=== PATIENT | male | born 1930 | race Caucasian/White ===

== ENCOUNTER 2017-01-05 17:42 | Inpatient (IN) | payer MEDICARE, OTHER ==
[2017-01-05] VITALS (7 sets, daily range): BP systolic 178–185; BP diastolic 102–103; PULSE 69–72; RESP 17–21; TEMP 94.5–98.9; O2SAT 99–100
[~2017-01-05] VITALS: Ht 177.8 cm; Wt 85.5 kg
[~2017-01-05 17:42] MED LIST: 1-ME1LIQ OR; BENA20TA PO; GLIM2TAB PO; LABE100T2 PO; LISI-363 PO; LORT5TAB PO; PROP1TAB PO; TIMO0.5S29 OP; TRAV0.00 EACH EYE
[2017-01-05] MEDS ORDERED: SODIUM CHLOR 0.9% 1000 ML INJ 1,000 ML IV SCH ×2 (17:52→20:45)
[2017-01-05] MEDS ORDERED: SODIUM CHLORIDE 0.9% FLUSH 10 ML FLUSH IVF PRN (18:00)
--- NOTE | 2017-01-05 18:10 | PD ---
HPI Chief Complaint: Altered Mental Status Time Seen by Provider: 17:52 Travel History International Travel<30 days: No Contact w/Intl Traveler<30days: No Traveled to known affect area: No History of Present Illness HPI The patient is a 86-year-old male who presents to the emergency department via EMS as a Guadalupe act. According to the police affidavit the patient's family called police because the patient has had an altered mental status and has been kicking and pushing at other family members. 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 Upon arrival the patient is a poor historian, is able to tell me his name, but is unable to tell me the current location, month, year, or who was the president of [facility]. The patient denies any chest pain, shortness breath, nausea, vomiting, or abdominal pain. EMS/police did bring a record of the patient's medications which include dementia medications, diabetes medications, and antihypertensives. PFSH Past Medical History Anxiety: Yes Cancer: Yes (SKIN) Cardiovascular Problems: No Dementia: Yes Diabetes: Yes Patient Takes Glucophage: Yes Hepatitis: No Hiatal Hernia: No Hypertension: Yes Thyroid Disease: No Past Surgical History Abdominal Surgery: No Cardiac Surgery: No Ear Surgery: No Endocrine Surgery: No Eye Surgery: Yes (CATARACTS REMOVED) Genitourinary Surgery: Yes (PROSTATE) Gynecologic Surgery: No Oral Surgery: No Thoracic Surgery: No Other Surgery: Yes Social History Alcohol Use: No Tobacco Use: No Substance Use: No Allergies-Medications (Allergen,Severity, Reaction): Coded Allergies: Penicillin (Verified Allergy, Mild, CAN'T REMEMBER, 12/05/07) Reported Meds & Prescriptions Reported Meds & Active Scripts Active Reported Glimepiride 2 Mg Tab 2 Mg PO DAILY Take with breakfast or first main meal Donepezil 10 Mg Tab 10 Mg PO DAILY Labetalol (Labetalol HCl) 100 Mg Tab 100 Mg PO BID Amlodipine (Amlodipine Besylate) 5 Mg Tab 5 Mg PO DAILY Lisinopril 20 Mg Tab 20 Mg PO BID Review of Systems ROS Limitations: Clinical Condition, Altered Mental Status Except as stated in HPI: all other systems reviewed are Neg HENT: No: Lightheadedness Cardiovascular: No: Chest Pain or Discomfort Respiratory: No: Shortness of Breath Gastrointestinal: No: Nausea, Vomiting, Abdominal Pain Neurologic: Positive: Change in Mentation (according to EMS) Physical Exam Narrative GENERAL: Awake, alert, pleasant 86-year-old male who appears his stated age and is in no acute respiratory distress. SKIN: Focused skin assessment warm/dry. HEAD: Atraumatic. Normocephalic. EYES: Pupils equal and round. Pupils are 3 mm bilateral and reactive. ENT: No nasal bleeding or discharge. Mucous membranes pink and moist. NECK: Trachea midline. No JVD. CARDIOVASCULAR: Regular rate and rhythm. No murmur appreciated. RESPIRATORY: No accessory muscle use. Clear to auscultation. Breath sounds equal bilaterally. GASTROINTESTINAL: Abdomen soft, non-tender, nondistended. No rebound tenderness. MUSCULOSKELETAL: No obvious deformities. No clubbing. No cyanosis. No edema. NEUROLOGICAL: Awake and alert. No obvious cranial nerve deficits. Motor grossly within normal limits. Normal speech. Nonfocal. Oriented to person, but not month, year, or document control clerk. PSYCHIATRIC: Appears disoriented. Data Data Last Documented VS Vital Signs Date Time Temp Pulse Resp B/P Pulse Ox O2 Delivery O2 Flow Rate FiO2 01/05/17 19:15 71 21 185/103 100 Nasal Cannula 1 01/05/17 18:07 94.5 Orders Electrocardiogram (01/05/17 17:52) Ammonia (01/05/17 17:52) Complete Blood Count With Diff (01/05/17 17:52) Comprehensive Metabolic Panel (01/05/17 17:52) Creatine Kinase (Cpk) (01/05/17 17:52) Prothrombin Time / Inr (Pt) (01/05/17:52) Act Partial Throm Time (Ptt) (01/05/17 17:52) Troponin I (01/05/17 17:52) Thyroid Stimulating Hormone (01/05/17 17:52) Urinalysis - C+S If Indicated (01/05/17 17:52) Chest, Single Ap (01/05/17:52) Ct Brain W/O Iv Contrast(Rout) (01/05/17 17:52) Blood Glucose (01/05/17 17:52) Ecg Monitoring (01/05/17 17:52) Iv Access Insert/Monitor (01/05/17 17:52) Oximetry (01/05/17 17:52) Sodium Chloride 0.9% Flush (Ns Flush) (01/05/17 18:00) Sodium Chlor 0.9% 1000 Ml Inj (Ns 1000 M (01/05/17 17:52) Alcohol (Ethanol) (01/05/17 17:52) Shunt Series (01/05/17 ) Blood Culture (01/05/17 18:03) Lactic Acid (01/05/17 18:03) Aspirin Chew (Aspirin Chew) (01/05/17 19:30) Nitroglycerin 2% Oint (Nitroglycerin 2% (01/05/17 19:30) Admit Order (Ed Use Only) (01/05/17 19:34) Labs Laboratory Tests Test 01/05/17 18:05 White Blood Count 9.0 TH/MM3 Red Blood Count 5.61 MIL/MM3 Hemoglobin 16.2 GM/DL Hematocrit 49.1 % Mean Corpuscular Volume 87.6 FL Mean Corpuscular Hemoglobin 28.8 PG Mean Corpuscular Hemoglobin 32.9 % Concent Red Cell Distribution Width 15.0 % Platelet Count 194 TH/MM3 Mean Platelet Volume 7.9 FL Neutrophils (%) (Auto) 68.9 % Lymphocytes (%) (Auto) 21.0 % Monocytes (%) (Auto) 7.5 % Eosinophils (%) (Auto) 2.0 % Basophils (%) (Auto) 0.6 % Neutrophils # (Auto) 6.2 TH/MM3 Lymphocytes # (Auto) 1.9 TH/MM3 Monocytes # (Auto) 0.7 TH/MM3 Eosinophils # (Auto) 0.2 TH/MM3 Basophils # (Auto) 0.1 TH/MM3 CBC Comment DIFF FINAL Differential Comment Prothrombin Time 11.4 SEC Prothromb Time International 1.0 RATIO Ratio Activated Partial 26.6 SEC Thromboplast Time Sodium Level 142 MEQ/L Potassium Level 3.6 MEQ/L Chloride Level 106 MEQ/L Carbon Dioxide Level 25.9 MEQ/L Anion Gap 10 MEQ/L Blood Urea Nitrogen 23 MG/DL Creatinine 1.26 MG/DL Estimat Glomerular Filtration 54 ML/MIN Rate Random Glucose 113 MG/DL Lactic Acid Level 1.3 mmol/L Calcium Level 9.5 MG/DL Total Bilirubin 1.0 MG/DL Aspartate Amino Transf 18 U/L (AST/SGOT) Alanine Aminotransferase 23 U/L (ALT/SGPT) Alkaline Phosphatase 70 U/L Ammonia LESS THAN 10 MCMOL/L Total Creatine Kinase 73 U/L Troponin I 0.16 NG/ML Total Protein 7.6 GM/DL Albumin 3.7 GM/DL Thyroid Stimulating Hormone 1.840 uIU/ML 3rd Gen Ethyl Alcohol Level LESS THAN 3 MG/DL MDM Medical Decision Making Medical Screen Exam Complete: Yes Emergency Medical Condition: Yes Medical Record Reviewed: Yes Interpretation(s) EKG reveals normal sinus rhythm with first-degree AV block. Low QRS voltage in the extremity leads. Prolonged QT interval with QTC of 466 ms. Last Impressions Head CT 01/05/17 0122 Signed Impressions: Service Date/Time: Thursday, January 05, 2017 18:22 - CONCLUSION: 1. Right ventricular shunt catheter remains in place and is unchanged in position with the tip at the level of the foramen of Monro. 2. The ventricular system is stable and remains diffusely prominent. There is no acute hydrocephalus. 3. No acute hemorrhage or mass effect. 4. Stable area of encephalomalacia involving the right occipital lobe. Kelechi Salmon MD Laboratory Tests Test 01/05/17 18:05 White Blood Count 9.0 TH/MM3 Red Blood Count 5.61 MIL/MM3 Hemoglobin 16.2 GM/DL Hematocrit 49.1 % Mean Corpuscular Volume 87.6 FL Mean Corpuscular Hemoglobin 28.8 PG Mean Corpuscular Hemoglobin 32.9 % Concent Red Cell Distribution Width 15.0 % Platelet Count 194 TH/MM3 Mean Platelet Volume 7.9 FL Neutrophils (%) (Auto) 68.9 % Lymphocytes (%) (Auto) 21.0 % Monocytes (%) (Auto) 7.5 % Eosinophils (%) (Auto) 2.0 % Basophils (%) (Auto) 0.6 % Neutrophils # (Auto) 6.2 TH/MM3 Lymphocytes # (Auto) 1.9 TH/MM3 Monocytes # (Auto) 0.7 TH/MM3 Eosinophils # (Auto) 0.2 TH/MM3 Basophils # (Auto) 0.1 TH/MM3 CBC Comment DIFF FINAL Differential Comment Prothrombin Time 11.4 SEC Prothromb Time International 1.0 RATIO Ratio Activated Partial 26.6 SEC Thromboplast Time Lactic Acid Level 1.3 mmol/L Ammonia LESS THAN 10 MCMOL/L Differential Diagnosis Differential diagnosis includes delirium, sepsis, UTI, pneumonia, normal pressure hydrocephalus, meningitis, encephalitis, medication side effect, dementia, Guadalupe act. Narrative Course IV was established, labs are drawn and sent, and the patient was placed on cardiac telemetry monitoring and continuous pulse oximetry monitoring. The patient was noted to be hypothermic with a temperature 94.5. Therefore, the patient had warm blankets applied. Lactic acid blood culture were sent to lab. CT of the brain was ordered as well as shunt series was ordered. The patient was signed out to the oncoming physician at 7 PM with laboratory evaluation and CT results pending. Condition: Stable Jeronimo Bird MD Jan 05, 2017 18:10
[2017-01-05 18:27] LABS: AUTOMATED NEUTROPHIL # 6.2 TH/MM3 (1.8-7.7); BASOPHIL # 0.1 TH/MM3 (0-0.2); BASOPHIL % 0.6 % (0.0-2.0); EOSINOPHIL # 0.2 TH/MM3 (0-0.4); HEMATOCRIT 49.1 % (39.0-51.0); HEMO FLAGS DIFF FINAL; LYMPHOCYTE # 1.9 TH/MM3 (1.0-4.8); MEAN CELL VOLUME 87.6 FL (80.0-100.0); MEAN CORPUSCULAR HEMOGLOBIN 28.8 PG (27.0-34.0); MEAN CORPUSCULAR HGB CONC 32.9 % (32.0-36.0); MONO % 7.5 % (0.0-8.0); NEUT % 68.9 % (16.0-70.0); PLATELET COUNT 194 TH/MM3 (150-450); RED BLOOD COUNT 5.61 MIL/MM3 (4.50-5.90)
[2017-01-05 18:40] LABS: APTT (PATIENT) 26.6 SEC (24.3-30.1); PROTHROMBIN TIME - PATIENT 11.4 SEC (9.8-11.6)
[2017-01-05 18:44] LABS: ANION GAP 10 MEQ/L (5-15)
--- NOTE | 2017-01-05 18:45 | RADRPT ---
EXAM DATE/TIME: 01/05/2017 18:22 [facility] COMPARISON: CT BRAIN W/O CONTRAST, February 07, 2011, 10:46. INDICATIONS : Altered mental status. RADIATION DOSE: 43.38 CTDIvol (mGy) MEDICAL HISTORY : Dementia. SURGICAL HISTORY : Shunt. ENCOUNTER: Initial ACUITY: 1 day PAIN SCALE: Non-responsive LOCATION: Bilateral cranial TECHNIQUE: Multiple contiguous axial images were obtained of the head. Using automated exposure control and adj ustment of the mA and/or kV according to patient size, radiation dose was kept as low as reasonably a chievable to obtain optimal diagnostic quality images. FINDINGS: Patient is tilted in the scanning gantry and there is mild motion artifact degrading images. CEREBRUM: The ventricular shunt catheter remains in place via a right frontal approach. The tip of the catheter is stable in position and is located near the foramen of Monro. The ventricular system remains diffu sely prominent but is unchanged. No evidence of midline shift, mass lesion, hemorrhage or acute infar ction. No extra-axial fluid collections are seen. Diffuse moderate atrophic changes present. There a re periventricular white matter lucency is again noted. There is focal air encephalomalacia again not ed involving the right occipital lobe. POSTERIOR FOSSA: The cerebellum and brainstem are intact. The 4th ventricle is midline. The cerebellopontine angle i s unremarkable. EXTRACRANIAL: The visualized portion of the orbits is intact. SKULL: The calvaria is intact. No evidence of skull fracture. CONCLUSION: 1. Right ventricular shunt catheter remains in place and is unchanged in position with the tip at the level of the foramen of Monro. 2. The ventricular system is stable and remains diffusely prominent. There is no acute hydrocephalus. 3. No acute hemorrhage or mass effect. 4. Stable area of encephalomalacia involving the right occipital lobe. Kelechi Salmon MD on January 05, 2017 at 18:41 Board Certified Radiologist. This report was verified electronically.
[2017-01-05 18:55] LABS: ALKALINE PHOSPHATASE 70 U/L (45-117); ALT (GPT) 23 U/L (12-78); AST (GOT) 18 U/L (15-37); BICARBONATE 25.9 MEQ/L (21.0-32.0); BLOOD UREA NITROGEN 23 MG/DL (7-18); CHLORIDE 106 MEQ/L (98-107); GLOMERULAR FILTRATION RATE 54 ML/MIN (>89); POTASSIUM 3.6 MEQ/L (3.5-5.1); SODIUM (NA) 142 MEQ/L (136-145)
--- NOTE | 2017-01-05 18:57 | RADRPT ---
EXAM DATE/TIME: 01/05/2017 18:31 [facility] COMPARISON: No previous studies available for comparison. INDICATIONS : Cough. Ventriculoperitoneal shunt catheter. MEDICAL HISTORY : None. SURGICAL HISTORY : Shunt. ENCOUNTER: Initial ACUITY: 1 day PAIN SCORE: Non-responsive. LOCATION: Bilateral chest FINDINGS: A single view of the chest demonstrates the lungs to be symmetrically aerated without evidence of mas s or infiltrate. There is mild blunting of the right lateral costophrenic angle. The cardiomediastina l contours are unremarkable. Osseous structures are intact. A ventricular peritoneal shunt catheter is projected over the right side of the chest. There are multiple overlying electrocardiogram leads. CONCLUSION: 1. Mild blunting of the right lateral costophrenic angle which could indicate scarring versus a small effusion. There are no identifiable infiltrates. 2. Shunt catheter tubing projected over the right side of the thorax. Kelechi Salmon MD on January 05, 2017 at 18:54 Board Certified Radiologist. This report was verified electronically.
[2017-01-05 19:03] LABS: CREATINE KINASE 73 U/L (39-308)
--- NOTE | 2017-01-05 19:10 | PD ---
Data Data Last Documented VS Vital Signs Date Time Temp Pulse Resp B/P Pulse Ox O2 Delivery O2 Flow Rate FiO2 01/05/17 19:15 71 21 185/103 100 Nasal Cannula 1 01/05/17 18:07 94.5 Orders Electrocardiogram (01/05/17 17:52) Ammonia (01/05/17 17:52) Complete Blood Count With Diff (01/05/17 17:52) Comprehensive Metabolic Panel (01/05/17:52) Creatine Kinase (Cpk) (01/05/17:52) Prothrombin Time / Inr (Pt) (01/05/17:52) Act Partial Throm Time (Ptt) (01/05/17:52) Troponin I (01/05/17:52) Thyroid Stimulating Hormone (01/05/17:52) Urinalysis - C+S If Indicated (01/05/17:52) Chest, Single Ap (01/05/17:52) Ct Brain W/O Iv Contrast(Rout) (01/05/17:52) Blood Glucose (01/05/17:52) Ecg Monitoring (01/05/17 17:52) Iv Access Insert/Monitor (01/05/17 17:52) Oximetry (01/05/17:52) Sodium Chloride 0.9% Flush (Ns Flush) (01/05/17 18:00) Sodium Chlor 0.9% 1000 Ml Inj (Ns 1000 M (01/05/17 17:52) Alcohol (Ethanol) (01/05/17 17:52) Shunt Series (01/05/17 ) Blood Culture (01/05/17 18:03) Lactic Acid (01/05/17 18:03) Aspirin Chew (Aspirin Chew) (01/05/17 19:30) Nitroglycerin 2% Oint (Nitroglycerin 2% (01/05/17 19:30) Admit Order (Ed Use Only) (01/05/17 19:34) Labs Laboratory Tests Test 01/05/17 18:05 White Blood Count 9.0 TH/MM3 Red Blood Count 5.61 MIL/MM3 Hemoglobin 16.2 GM/DL Hematocrit 49.1 % Mean Corpuscular Volume 87.6 FL Mean Corpuscular Hemoglobin 28.8 PG Mean Corpuscular Hemoglobin 32.9 % Concent Red Cell Distribution Width 15.0 % Platelet Count 194 TH/MM3 Mean Platelet Volume 7.9 FL Neutrophils (%) (Auto) 68.9 % Lymphocytes (%) (Auto) 21.0 % Monocytes (%) (Auto) 7.5 % Eosinophils (%) (Auto) 2.0 % Basophils (%) (Auto) 0.6 % Neutrophils # (Auto) 6.2 TH/MM3 Lymphocytes # (Auto) 1.9 TH/MM3 Monocytes # (Auto) 0.7 TH/MM3 Eosinophils # (Auto) 0.2 TH/MM3 Basophils # (Auto) 0.1 TH/MM3 CBC Comment DIFF FINAL Differential Comment Prothrombin Time 11.4 SEC Prothromb Time International 1.0 RATIO Ratio Activated Partial 26.6 SEC Thromboplast Time Sodium Level 142 MEQ/L Potassium Level 3.6 MEQ/L Chloride Level 106 MEQ/L Carbon Dioxide Level 25.9 MEQ/L Anion Gap 10 MEQ/L Blood Urea Nitrogen 23 MG/DL Creatinine 1.26 MG/DL Estimat Glomerular Filtration 54 ML/MIN Rate Random Glucose 113 MG/DL Lactic Acid Level 1.3 mmol/L Calcium Level 9.5 MG/DL Total Bilirubin 1.0 MG/DL Aspartate Amino Transf 18 U/L (AST/SGOT) Alanine Aminotransferase 23 U/L (ALT/SGPT) Alkaline Phosphatase 70 U/L Ammonia LESS THAN 10 MCMOL/L Total Creatine Kinase 73 U/L Troponin I 0.16 NG/ML Total Protein 7.6 GM/DL Albumin 3.7 GM/DL Thyroid Stimulating Hormone 1.840 uIU/ML 3rd Gen Ethyl Alcohol Level LESS THAN 3 MG/DL [facility] Medical Record Reviewed: Yes Supervised Visit with GLEN: No Interpretation(s) Last Impressions Head CT 01/05/171751 Signed Impressions: Service Date/Time: Thursday, January 05, 2017 18:22 - CONCLUSION: 1. Right ventricular shunt catheter remains in place and is unchanged in position with the tip at the level of the foramen of Monro. 2. The ventricular system is stable and remains diffusely prominent. There is no acute hydrocephalus. 3. No acute hemorrhage or mass effect. 4. Stable area of encephalomalacia involving the right occipital lobe. Kelechi Salmon MD Chest X-Ray 01/05/171751 Signed Impressions: Service Date/Time: Thursday, January 05, 2017 18:31 - CONCLUSION: 1. Mild blunting of the right lateral costophrenic angle which could indicate scarring versus a small effusion. There are no identifiable infiltrates. 2. Shunt catheter tubing projected over the right side of the thorax. Kelechi Salmon MD Shunt Study (Imaging) 01/05/17 0000 Signed Impressions: Service Date/Time: Thursday, January 05, 2017 18:33 - CONCLUSION: The shunt tubing appears intact. Kelechi Salmon MD Narrative Course During the course of the patients emergency department visit, the patients history, examination, and differential diagnosis were reviewed with the patient. The patient had IV access obtained and blood work sent for analysis. The patient was placed on a vehicle monitor technician with oximetry and blood pressure monitoring. The patient's case was checked out to me by Dr. Bird who requested that I review the patient's laboratory studies and imaging studies that were pending at the conclusion of his shift. The patient was brought in as a Guadalupe act due to acute agitation. The patient does have a known history of dementia and a REMARKETING REP shunt in place. The patient was provided [-]. The patients laboratory studies were reviewed and remarkable for CBC within normal limits, CMP is remarkable for a BUN of 23, glucose 113, CPK 73, troponin I 0.16, TSH 1.84, ammonia level is less than 10, lactic acid is 1.3, PT PTT within normal limits. Alcohol level is less than 3 Radiology studies were reviewed and remarkable for a CT scan of the brain that shows a right ventricular shunt catheter remains in place and is unchanged in position with the tip at the level of the foramen of Wong the ventricular system is stable and remains diffusely prominent. There is no acute hydrocephalus. No acute hemorrhage or mass effect. Stable area of encephalomalacia involving the right occipital lobe. Chest x-ray shows a mild blunting of the right lateral costophrenic angle which could indicate scarring versus a small effusion. There is no identifiable infiltrate, shunt catheter tubing projected over the right side of the thorax. The patient will be admitted to the hospital for continued evaluation. The patient has a slightly elevated troponin I. The patient denies having any chest pain. The patient has a systolic blood pressure of 183. The patient will be given 2 baby aspirin, an inch of paste will be applied to the chest wall. The patients results were discussed with the patient, including the plan of care. I explained that further testing and/ or monitoring is indicated based on the patients history, examination, and/ or laboratory findings. Therefore, I recommended admission for additional evaluation. The patient expressed understanding and was agreeable with this plan. The patient was admitted to the hospital in stable condition and sent to a bed under the care of [facility]. Physician Communication Physician Communication The patient's case was discussed with Dr. Solomon who did agree to admit the patient for further evaluation and treatment at this time. Diagnosis Primary Impression: Altered mental status Qualified Code: R41.0 - Delirium Additional Impressions: Delirium Elevated troponin I level Urinary retention Admitting Information Admitting Physician Requests: Admit Condition: Stable Sparkle Schilling MD Jan 05, 2017 19:10
--- NOTE | 2017-01-05 19:23 | RADRPT ---
EXAM DATE/TIME: 01/05/2017 18:33 [facility] COMPARISON: No previous studies available for comparison. INDICATIONS : Evaluate shunt after injury. MEDICAL HISTORY : None. SURGICAL HISTORY : None. ENCOUNTER: Initial ACUITY: 1 day PAIN SCORE: Non-responsive. LOCATION: Shunt. FINDINGS: Radiograph of the skull, neck, chest and abdomen performed to evaluate shunt patency. The shunt cath eter is seen entering the right frontal region with its tip in the region of the foramen of Monro. The catheter is continuous in its course terminating in the right mid abdomen. No catheter disruption is identified. The visualized heart, lungs and abdominal structures are intact. CONCLUSION: The shunt tubing appears intact. Kelechi Salmon MD on January 05, 2017 at 19:19 Board Certified Radiologist. This report was verified electronically.
[2017-01-05] MEDS ORDERED: NITROGLYCERIN 2% OINT 1 GM PACKET TOPICAL ONE (19:30)
[2017-01-05] MEDS ORDERED: ASPIRIN 81 MG CHEW TAB CHEW ONE (19:30)
--- NOTE | 2017-01-05 19:36 | PD ---
Physical Exam Date Seen by Provider: Jan 05, 2017 Time Seen by Provider: 19:35 Narrative I was called in to See the patient by nursing staff as they were having trouble placing a urinary catheter. Patient is retaining urine and having difficulty. Patient has large prostate and nursing staff was unable to advance the catheter and asked me if I could try. Patient is already planned to be admitted. Data Data Last Documented VS Vital Signs Date Time Temp Pulse Resp B/P Pulse Ox O2 Delivery O2 Flow Rate FiO2 01/05/17 19:15 71 21 185/103 100 Nasal Cannula 1 01/05/17 18:07 94.5 Orders Electrocardiogram (01/05/17 17:52) Ammonia (01/05/17:52) Complete Blood Count With Diff (01/05/17:52) Comprehensive Metabolic Panel (01/05/17:52) Creatine Kinase (Cpk) (01/05/17:52) Prothrombin Time / Inr (Pt) (01/05/17:52) Act Partial Throm Time (Ptt) (01/05/17:52) Troponin I (01/05/17:52) Thyroid Stimulating Hormone (01/05/17 17:52) Urinalysis - C+S If Indicated (01/05/17 17:52) Chest, Single Ap (01/05/17:52) Ct Brain W/O Iv Contrast(Rout) (01/05/17 17:52) Blood Glucose (01/05/17 17:52) Ecg Monitoring (01/05/17 17:52) Iv Access Insert/Monitor (01/05/17:52) Oximetry (01/05/17:52) Sodium Chloride 0.9% Flush (Ns Flush) (01/05/17 18:00) Sodium Chlor 0.9% 1000 Ml Inj (Ns 1000 M (01/05/17 17:52) Alcohol (Ethanol) (01/05/17 17:52) Shunt Series (01/05/17 ) Blood Culture (01/05/17 18:03) Lactic Acid (01/05/17 18:03) Aspirin Chew (Aspirin Chew) (01/05/17 19:30) Nitroglycerin 2% Oint (Nitroglycerin 2% (01/05/17 19:30) Admit Order (Ed Use Only) (01/05/17 19:34) Labs Laboratory Tests Test 01/05/17 18:05 White Blood Count 9.0 TH/MM3 Red Blood Count 5.61 MIL/MM3 Hemoglobin 16.2 GM/DL Hematocrit 49.1 % Mean Corpuscular Volume 87.6 FL Mean Corpuscular Hemoglobin 28.8 PG Mean Corpuscular Hemoglobin 32.9 % Concent Red Cell Distribution Width 15.0 % Platelet Count 194 TH/MM3 Mean Platelet Volume 7.9 FL Neutrophils (%) (Auto) 68.9 % Lymphocytes (%) (Auto) 21.0 % Monocytes (%) (Auto) 7.5 % Eosinophils (%) (Auto) 2.0 % Basophils (%) (Auto) 0.6 % Neutrophils # (Auto) 6.2 TH/MM3 Lymphocytes # (Auto) 1.9 TH/MM3 Monocytes # (Auto) 0.7 TH/MM3 Eosinophils # (Auto) 0.2 TH/MM3 Basophils # (Auto) 0.1 TH/MM3 CBC Comment DIFF FINAL Differential Comment Prothrombin Time 11.4 SEC Prothromb Time International 1.0 RATIO Ratio Activated Partial 26.6 SEC Thromboplast Time Sodium Level 142 MEQ/L Potassium Level 3.6 MEQ/L Chloride Level 106 MEQ/L Carbon Dioxide Level 25.9 MEQ/L Anion Gap 10 MEQ/L Blood Urea Nitrogen 23 MG/DL Creatinine 1.26 MG/DL Estimat Glomerular Filtration 54 ML/MIN Rate Random Glucose 113 MG/DL Lactic Acid Level 1.3 mmol/L Calcium Level 9.5 MG/DL Total Bilirubin 1.0 MG/DL Aspartate Amino Transf 18 U/L (AST/SGOT) Alanine Aminotransferase 23 U/L (ALT/SGPT) Alkaline Phosphatase 70 U/L Ammonia LESS THAN 10 MCMOL/L Total Creatine Kinase 73 U/L Troponin I 0.16 NG/ML Total Protein 7.6 GM/DL Albumin 3.7 GM/DL Thyroid Stimulating Hormone 1.840 uIU/ML 3rd Gen Ethyl Alcohol Level LESS THAN 3 MG/DL [facility] Medical Record Reviewed: Yes Supervised Visit with GLEN: Yes Differential Diagnosis Urinary retention. Enlarged prostate. Prostatitis. Narrative Course Daily catheter was attempted to be placed by myself without success. Call was placed to Dr. Merritt the urologist on-call the patient was discussed. Patient had 370 mL stone in his bladder. Dr. Merritt recommended that we do not attempt to try further Flores attempts at this time and that he would put him in the morning. Consult was placed to Dr. Merritt for the patient to see them in the morning. Call was placed to Dr. Solomon in the patient's urinary issue was discussed. Diagnosis Primary Impression: Altered mental status Additional Impressions: Elevated troponin I level Delirium Condition: Stable William Santana Jan 05, 2017 19:36
[2017-01-05] MEDS ORDERED: DEXTROSE 50% IN WATER 50 ML VIAL(D50) IV PUSH PRN (20:00)
[2017-01-05] MEDS ORDERED: GLUCAGON 1 MG/ML VIAL OTHER PRN (20:00)
[2017-01-05] MEDS ORDERED: ONDANSETRON HCL 4 MG/2 ML VIAL IVP PRN (20:30)
[2017-01-05] MEDS ORDERED: NALOXONE HCL 0.4 MG/ML AMP IV PRN (20:30)
[2017-01-05] MEDS ORDERED: BISACODYL 10 MG SUPP RECTAL PRN (20:30)
[2017-01-05] MEDS ORDERED: ACETAMINOPHEN 325 MG TAB PO PRN (20:30)
[2017-01-05] MEDS ORDERED: SODIUM CHLORIDE 0.9% FLUSH 10 ML FLUSH IV FLUSH PRN (20:30)
[2017-01-05] MEDS: INSULIN ASPART SUPPLEMENTAL SCALE SQ SCH (20:41)
[2017-01-05 20:47] LABS: BLOOD, URINE MOD (NEG); GLUCOSE,URINE NEG (NEG); KETONE, URINE 10 mg/dL (NEG); NITRITE,URINE NEG (NEG); PH, URINE 7.5 (5.0-8.5); URINE COLOR YELLOW (YELLW/STRAW)
[2017-01-05 20:48] LABS: COMMENT (UR) CATH-CULT NOT IND; CULTURE IF INDICATED CATH CULTURE NOT IND
[2017-01-05] MEDS ORDERED: INSULIN ASPART SUPPLEMENTAL SCALE SQ SCH (21:00)
[2017-01-05] MEDS: DOCUSATE SODIUM 100 MG CAP PO SCH (21:00)
[2017-01-05] MEDS: HEPARIN SODIUM - SQ 10,000 UNITS/ML VIAL SQ SCH (22:27)
[2017-01-05] MEDS: SODIUM CHLORIDE 0.9% FLUSH 10 ML FLUSH IV FLUSH SCH (22:27)
--- NOTE | 2017-01-05 22:29 | HHI.HP ---
HPI Service [facility] Primary Care Physician Unknown Admission Diagnosis AMS, intermediate troponin Diagnoses: Chief Complaint: Brought in under Guadalupe act after becoming aggressive with the family. 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 Patient was brought into the emergency department emergency department via EMS as a Guadalupe act. According to the police affidavit the patient's family called police because the patient has had become aggressive and had kicked and pushed his family members. Patient is alert and oriented to person only. Patient is a poor historian answers yes to all questions including chest pain, dysuria abd pain, SOB. unable to elaborate or give further details. Unable to follow commands. Review of ER documentation , "The patient denies any chest pain, shortness breath, nausea, vomiting, or abdominal pain." History of reliable. Patient does not appear to be in any acute distress at this time EKG reviewed and reveals ectopic atrial rhythm rate of [address] changes identified Troponin elevated at 0.16 Review of Systems ROS Limitations: Poor Historian (patient confused but oriented to person only unable to find any meaningful information) Past Family Social History Past Medical History Dementia, normal pressure hydrocephalus status post FISHER EEL shunt, diabetes mellitus , hypertension Past Surgical History Cataract surgery and prostate surgery Reported Medications Glimepiride 2 Mg Tab 2 Mg PO DAILY Take with breakfast or first main meal Donepezil 10 Mg Tab 10 Mg PO DAILY Labetalol (Labetalol HCl) 100 Mg Tab 100 Mg PO BID Amlodipine (Amlodipine Besylate) 5 Mg Tab 5 Mg PO DAILY Lisinopril 20 Mg Tab 20 Mg PO BID Allergies: Coded Allergies: Penicillin (Verified Allergy, Mild, CAN'T REMEMBER, 12/05/07) Active Ordered Medications Current Medications Medications (Trade) Dose Ordered Sig/Yesenia Route Start Time Stop Time Status Last Admin (D50w (Vial) Inj) 25 ml UNSCH PRN IV PUSH 01/05/17 20:00 (Glucagon Inj) 1 mg UNSCH PRN OTHER 01/05/17 20:00 (NS Flush) 2 ml UNSCH PRN IV FLUSH 01/05/17 20:30 (NS Flush) 2 ml BID IV FLUSH 01/05/17 21:00 01/05/17 22:27 (Tylenol) 650 mg Q4H PRN PO 01/05/17 20:30 (Zofran Inj) 4 mg Q6H PRN IVP 01/05/17 20:30 (Dulcolax Supp) 10 mg DAILY PRN RECTAL 01/05/17 20:30 (Colace) 100 mg Q12H PO 01/05/17 21:00 (Heparin Inj) 5,000 units Q12H SQ 01/05/17 21:00 01/05/17 22:27 (Narcan Inj) 0.4 mg UNSCH PRN IV 01/05/17 20:30 (Nitroglycerin 2% Oint) 1 inch Q6HR TOPICAL 01/06/17 00:00 Family History Unable to obtain due to patient's mental status. Previous records reviewed Social History Lives at home with family. no report of EtOH use or tobacco use Physical Exam Vital Signs Vital Signs Date Time Temp Pulse Resp B/P Pulse Ox O2 Delivery O2 Flow Rate FiO2 01/05/17 22:09 99 Nasal Cannula 1.00 01/05/17 22:06 72 21 178/102 100 Nasal Cannula 2 01/05/17 19:51 98.9 01/05/17 19:15 71 21 185/103 100 Nasal Cannula 1 01/05/17 18:07 94.5 01/05/17 18:04 183/102 99 Room Air 01/05/17 17:55 99 Room Air 01/05/17 17:52 69 17 180/103 Physical Exam GENERAL: This is an elderly confused 86-year-old male patient tolerated to person only SKIN: Abrasion right knee lateral aspect HEAD: Atraumatic. FISHER EEL shunt evident through skin EYES: Extraocular motions intact. No scleral icterus. No injection or drainage. CARDIOVASCULAR: Regular rate and rhythm without murmurs, gallops, or rubs. RESPIRATORY: Clear to auscultation. Breath sounds equal bilaterally. No wheezes , rales, or rhonchi. GASTROINTESTINAL: Abdomen soft, non-tender, nondistended. No guarding. MUSCULOSKELETAL: Extremities without clubbing, cyanosis, or edema. No joint tenderness, effusion, or edema noted. No calf tenderness. Negative Homans sign bilaterally. NEUROLOGICAL: Awake and alert. Patient is alert and oriented to person only unable to provide meaningful information. Unable to follow commands, does move all 4 extremities spontaneously Laboratory Laboratory Tests Test 01/05/17 01/05/17 18:05 20:35 White Blood Count 9.0 Red Blood Count 5.61 Hemoglobin 16.2 Hematocrit 49.1 Mean Corpuscular Volume 87.6 Mean Corpuscular Hemoglobin 28.8 Mean Corpuscular Hemoglobin 32.9 Concent Red Cell Distribution Width 15.0 Platelet Count 194 Mean Platelet Volume 7.9 Neutrophils (%) (Auto) 68.9 Lymphocytes (%) (Auto) 21.0 Monocytes (%) (Auto) 7.5 Eosinophils (%) (Auto) 2.0 Basophils (%) (Auto) 0.6 Neutrophils # (Auto) 6.2 Lymphocytes # (Auto) 1.9 Monocytes # (Auto) 0.7 Eosinophils # (Auto) 0.2 Basophils # (Auto) 0.1 CBC Comment DIFF FINAL Differential Comment Prothrombin Time 11.4 Prothromb Time International 1.0 Ratio Activated Partial 26.6 Thromboplast Time Sodium Level 142 Potassium Level 3.6 Chloride Level 106 Carbon Dioxide Level 25.9 Anion Gap 10 Blood Urea Nitrogen 23 Creatinine 1.26 Estimat Glomerular Filtration 54 Rate Random Glucose 113 Lactic Acid Level 1.3 Calcium Level 9.5 Total Bilirubin 1.0 Aspartate Amino Transf 18 (AST/SGOT) Alanine Aminotransferase 23 (ALT/SGPT) Alkaline Phosphatase 70 Ammonia LESS THAN 10 Total Creatine Kinase 73 Troponin I 0.16 Total Protein 7.6 Albumin 3.7 Thyroid Stimulating Hormone 1.840 3rd Gen Ethyl Alcohol Level LESS THAN 3 Urine Color YELLOW Urine Turbidity CLEAR Urine pH 7.5 Urine Specific [place] 1.011 Urine Protein 30 Urine Glucose (UA) NEG Urine Ketones 10 Urine Occult Blood MOD Urine Nitrite NEG Urine Bilirubin NEG Urine Urobilinogen LESS THAN 2.0 Urine Leukocyte Esterase NEG Urine RBC Urine WBC 5 Microscopic Urinalysis Comment CATH-CULT NOT IND Date/Time Procedure Status Source Growth 01/05/17 18:05 Aerobic Blood Culture Received Blood Peripheral Pending 01/05/17 18:05 Anaerobic Blood Culture Received Blood Peripheral Pending Result Diagram: 01/05/17 18001/05/171804 Imaging Last Impressions Head CT 01/05/171751 Signed Impressions: Service Date/Time: Thursday, January 05, 2017 18:22 - CONCLUSION: 1. Right ventricular shunt catheter remains in place and is unchanged in position with the tip at the level of the foramen of Monro. 2. The ventricular system is stable and remains diffusely prominent. There is no acute hydrocephalus. 3. No acute hemorrhage or mass effect. 4. Stable area of encephalomalacia involving the right occipital lobe. Kelechi Salmon MD Chest X-Ray 01/05/171751 Signed Impressions: Service Date/Time: Thursday, January 05, 2017 18:31 - CONCLUSION: 1. Mild blunting of the right lateral costophrenic angle which could indicate scarring versus a small effusion. There are no identifiable infiltrates. 2. Shunt catheter tubing projected over the right side of the thorax. Kelechi Salmon MD Shunt Study (Imaging) 01/05/17 0000 Signed Impressions: Service Date/Time: Thursday, January 05, 2017 18:33 - CONCLUSION: The shunt tubing appears intact. Kelechi Salmon MD Assessment and Plan Assessment and Plan This is an elderly 86 year old male patient with a past medical history which includes: Dementia, normal pressure hydrocephalus status post FISHER EEL shunt, diabetes mellitus, hypertension. Patient was brought into the emergency department emergency department via EMS as a Guadalupe act after becoming aggressive with family members found to have elevated troponin 0.16. Altered mental status question worsening dementia Dementia Radiology studies were reviewed by myself and Dr Solomon CT scan of the brain showed a right ventricular shunt catheter remains in place and is unchanged in position with the tip at the level of the foramen of Wong the ventricular system is stable and remains diffusely prominent. There is no acute hydrocephalus. No acute hemorrhage or mass effect. Stable area of encephalomalacia involving the right occipital lobe. Continue Donepezil Elevated troponin 0.16 Given 2 baby aspirin, an inch of paste will be applied to the chest wall in ER Continue Nitropaste Serial troponin Hypertension- likely exacerbated by agitation continue home Norvasc as well as labetalol Hold bisoprolol in light of renal function Continue with Nitropaste Continue to monitor trend Acute kidney injury on Chronic kidney disease-BUN 23, creatinine 1.26, GFR 54 Avoid nephrotoxins continue to monitor Unable to give IV fluid secondary to urinary retention and on the inability to place Flores catheter Recheck labs in a.m. Urinary retention- BPH ER has been unable to place Flores catheter ER provider discussed with urology recommends no further attempts to place a Flores will evaluate further in a.m. Recommends holding IV fluids Diabetes mellitus hold oral medications at this time Accu-Cheks before meals at bedtime with low-dose sliding scale insulin coverage Guadalupe act consult psychiatry DVT prophylaxis with subcutaneous heparin Discussed with ER provider, nursing and patient Written by Brittney Browne, acting as scribe for Dr. Solomon on 01/06/17 at 22: 29. This note was transcribed by scribe [Brittney Browne]. I, Dr. Linda Solomon personally performed the history, physical exam, and medical decision making; and confirmed the accuracy of the information in the transcribed note. Authenticated by Dr. Linda Solomon on 01/06/17 at 22:29. Brittney Browne Jan 05, 2017 22:29 Linda Solomon MD January 25, 2017 04:44
[2017-01-05] MEDS ORDERED: AMLO5TAB2 PO (22:35)
[2017-01-05] MEDS ORDERED: DONE10TA7 PO (22:35)
[2017-01-05] MEDS ORDERED: LABE100T2 PO (22:35)
[2017-01-05] MEDS ORDERED: LISI-515 PO (22:35)
[2017-01-05] MEDS ORDERED: GLIM2TAB PO (22:35)
[2017-01-06] VITALS (7 sets, daily range): BP systolic 144–183; BP diastolic 80–103; PULSE 68–110; RESP 18–21; TEMP 95.2–98.7; O2SAT 92–97
[2017-01-06] MEDS: NITROGLYCERIN 2% OINT 1 GM PACKET TOPICAL SCH ×2 (01:05→04:56)
[2017-01-06] MEDS ORDERED: HALOPERIDOL LACTATE 5 MG/ML AMP IV PUSH ONE (04:45)
[2017-01-06] MEDS: INSULIN ASPART SUPPLEMENTAL SCALE SQ SCH ×4 (05:56→21:00)
[2017-01-06 07:28] LABS: POTASSIUM 3.3 MEQ/L (3.5-5.1)
[2017-01-06 08:07] LABS: AUTOMATED NEUTROPHIL # 6.4 TH/MM3 (1.8-7.7); BASOPHIL # 0.1 TH/MM3 (0-0.2); BASOPHIL % 1.3 % (0.0-2.0); EOSINOPHIL # 0.1 TH/MM3 (0-0.4); EOSINOPHIL % 1.4 % (0.0-4.0); HEMATOCRIT 48.8 % (39.0-51.0); HEMO FLAGS DIFF FINAL; LYMPH % 18.3 % (9.0-44.0); LYMPHOCYTE # 1.7 TH/MM3 (1.0-4.8); MEAN CELL VOLUME 87.1 FL (80.0-100.0); MEAN CORPUSCULAR HEMOGLOBIN 28.7 PG (27.0-34.0); MEAN CORPUSCULAR HGB CONC 32.9 % (32.0-36.0); MONO % 8.6 % (0.0-8.0); NEUT % 70.4 % (16.0-70.0); PLATELET COUNT 143 TH/MM3 (150-450); RED CELL DISTRIBUTION WIDTH 15.1 % (11.6-17.2); WHITE BLOOD COUNT 9.1 TH/MM3 (4.0-11.0)
[2017-01-06] MEDS: DOCUSATE SODIUM 100 MG CAP PO SCH ×3 (09:00→23:25)
[2017-01-06] MEDS: LISINOPRIL 20 MG TAB PO SCH ×3 (09:00→23:26)
[2017-01-06] MEDS: SODIUM CHLORIDE 0.9% FLUSH 10 ML FLUSH IV FLUSH SCH ×2 (09:00→23:26)
[2017-01-06] MEDS: DONEPEZIL HCL 5 MG TAB PO SCH ×2 (09:00→13:40)
[2017-01-06] MEDS: POTASSIUM CHLORIDE 20 MEQ CONTROLLED RELEASE TAB PO SCH ×2 (09:00→13:41)
[2017-01-06] MEDS: amLODIPine BESYLATE 5 MG TAB PO SCH ×2 (09:00→13:40)
[2017-01-06] MEDS: LABETALOL HCL 100 MG TAB PO SCH ×2 (09:00→23:25)
[2017-01-06] MEDS: TAMSULOSIN HCL 0.4 MG CAP PO SCH ×2 (09:00→13:41)
--- NOTE | 2017-01-06 09:22 | MB ---
cc: FANNY DEVINE DATE OF CONSULTATION: 01/06/2017 HISTORY OF PRESENT ILLNESS This is an 86-year-old male who was Guadalupe Act'd due to aggressive behavior around his family members yesterday. Attempt was made to place a Flores catheter by the staff but this was unsuccessful in the emergency room last evening. He is able to void small amounts but does not empty completely. According to the chart the patient has had prior prostate surgery but is unclear of the type of surgery he had. He is a poor historian and the history will be taken from the chart due to his medical condition. He was noted to have an elevated troponin level of 0.16 on admission. He is presently not in any distress, does not complain of any chest pain. PAST MEDICAL HISTORY 1. Dementia. 2. Normal pressure hydrocephalus. 3. Diabetes mellitus. 4. Hypertension. PAST SURGICAL HISTORY 1. Cataract surgery. 2. Prostate surgery. MEDICATIONS For medications refer to the chart. ALLERGIES PENICILLIN. FAMILY HISTORY Unable to be obtained due to his mental status. SOCIAL HISTORY He currently lives at home with his family. REVIEW OF SYSTEMS I am unable to obtain a review of systems due to his dementia. PHYSICAL EXAMINATION VITAL SIGNS: Temperature 98.2, heart rate 74, respiratory rate 20, blood pressure 159/84. GENERAL: A well-developed, well-nourished 86-year-old male in no acute distress. HEENT: Normocephalic, atraumatic. Pupils equal, round and reactive to light. NECK: Supple. HEART: Regular rate and rhythm. LUNGS: Breath sounds bilaterally. ABDOMEN: Soft. Bladder is palpable. : Diapers in place. The patient is refusing a genitourinary exam. EXTREMITIES: No evidence of clubbing, cyanosis or edema. LABORATORY White count 9.1, hemoglobin 16.0, hematocrit 48.8, platelet count 143. Sodium 142, potassium 3.3, chloride 104, CO2 25.0, BUN 21, creatinine 1.02, glucose 99. Urinalysis shows negative leukocyte esterase, moderate blood. IMAGING Bladder scan in the emergency room showed 350 cc. Patient currently not in urinary retention. ASSESSMENT An 86-year-old male with dementia, admitted with elevated troponin and Guadalupe Act'd due to aggressive behavior. The patient has torn out his IV already in the emergency room. RECOMMENDATIONS At this point in time I recommend monitoring his voiding. His creatinine is normal. Will obtain a renal bladder sono to make sure there is no hydronephrosis, but he is likely a candidate to remove his Flores through trauma causing more injury. Will start on Flomax 0.4 mg q.h.s. to help with voiding, encourage ambulation and treat constipation as appropriate. Thank you for the consult. Will follow with you. Fanny HERRON /8:47 AM /9:07 AM
--- NOTE | 2017-01-06 09:53 | RADRPT ---
EXAM DATE/TIME: 01/06/2017 09:24 [place] COMPARISON: No previous studies available for comparison. INDICATIONS : Difficult voiding. MEDICAL HISTORY : Hypertension. Diabetic. Dementia. Hydrocephalus sstatus post RESIDENT PHYSICIAN shunt. SURGICAL HISTORY : RESIDENT PHYSICIAN shunt. ENCOUNTER: Initial ACUITY: 1 day PAIN SCORE: 0/10 LOCATION: Bilateral flank MEASUREMENTS: RIGHT KIDNEY: 10.8 x 5.4 x 5.8 cm LEFT KIDNEY: 11.5 x 4.5 x 5.8 cm FINDINGS: RIGHT KIDNEY: Renal cortex is normal in thickness and echotexture. No hydronephrosis, stone, or mass. LEFT KIDNEY: Renal cortex is normal in thickness and echotexture. No hydronephrosis, stone, or mass. BLADDER: Normal appearing bladder. The prostate is enlarged measuring 6.9 x 5.1 x 5.9 cm. CONCLUSION: Enlarged prostate. This does appear to extend into the posterior aspect of the bladder with soft tiss ue noted at this level. Gary Garcia MD on January 06, 2017 at 9:50 Board Certified Radiologist. This report was verified electronically.
--- NOTE | 2017-01-06 10:43 | EKG ---
Date Performed: 01/05/2017 Time Performed: 18:10:30 PTAGE: 86 years EKG: ECTOPIC ATRIAL RHYTHM LOW QRS VOLTAGE IN EXTREMITY LEADS PROLONGED QT INTERVAL ABNORMAL ECG PREVIOUS TRACING : 02/05/2011 17.38 DOCTOR: Kamaljit Chu Interpretating Date/Time 01/06/2017 10:42:41
[2017-01-06] MEDS ORDERED: LORazepam 2 MG/ML VIAL ONE (11:34)
[2017-01-06] MEDS ORDERED: LORazepam 2 MG/ML VIAL IV PUSH PRN (11:45)
[2017-01-06] MEDS ORDERED: LABETALOL HCL 100 MG/20 ML VIAL ONE (11:45)
--- NOTE | 2017-01-06 11:45 | EKG ---
Date Performed: 01/06/2017 Time Performed: 04:41:06 PTAGE: 86 years EKG: SINUS TACHYCARDIA LOW QRS VOLTAGE IN EXTREMITY LEADS NONSPECIFIC ST & T-WAVE ABNORMALITY AB NORMAL ECG PREVIOUS TRACING : 01/05/2017 18.10 DOCTOR: Kamaljit Chu Interpretating Date/Time 01/06/2017 11:44:04
--- NOTE | 2017-01-06 12:21 | EKG ---
Date Performed: 01/06/2017 Time Performed: 09:03:53 PTAGE: 86 years EKG: Sinus rhythm WITH OCCASIONAL VENTRICULAR PREMATURE COMPLEXES LOW QRS VOLTAGE IN EXTREMITY LEADS PROLONGED QT INTE RVAL ABNORMAL ECG PREVIOUS TRACING : 01/06/2017 04.41 DOCTOR: Kamaljit Chu Interpretating Date/Time 01/06/2017 12:19:59
[2017-01-06] MEDS: HEPARIN SODIUM - SQ 10,000 UNITS/ML VIAL SQ SCH ×2 (13:47→23:24)
[2017-01-06] MEDS ORDERED: FOSPHENYTOIN INJ 1,000 MGPE in SODIUM CHLORIDE 0.9% INJ 50 ML IV ONE (14:00)
[2017-01-06] MEDS ORDERED: PILL SPLITTER OTHER PRN (14:15)
--- NOTE | 2017-01-06 14:32 | PD.CONS ---
Provisional Diagnosis Admission Date Jan 05, 2017 at 19:37 [place] I. Dementia with behavioral disturbances [place] II. Deferred [place] III. BPH, HTN, DM, History of Present Illness Service Psychiatry Consult Requested By Primary Care Physician Unknown HPI The patient is a 86-year-old man with psychiatric history of normal pressure hydrocephalus dementia status post CURRICULUM SPECIALIST shunt on donepezil, medical history of diabetes mellitus, hypertension, chronic kidney disease, who was brought into the emergency department emergency department via EMS as a Guadalupe act after becoming aggressive with family members found to have elevated troponin 0.16. On initial psychiatric evaluation patient had Altered mental status question worsening dementia, CT scan of the brain showed a right ventricular shunt catheter remains in place and is unchanged in position with the tip at the level of the foramen of Wong the ventricular system is stable and remains diffusely prominent. There is no acute hydrocephalus. No acute hemorrhage or mass effect. Stable area of encephalomalacia involving the right occipital lobe. Fro his Elevated troponin 0.16 was Given 2 baby aspirin, an inch of paste will be applied to the chest wall in ER, Continue Nitropast and Serial troponin. Patient also was on Urinary retention due to BPH, urine department was consulted for Flores catheter placement. Patient was consulted to psychiatry because patient came on Guadalupe act due to behavior. On second evaluation patient is found non-cooperative, kind of sedated, no giving any meaningful information for the psychiatric assessment at this moment. As per PA in charge patient had what seemed to be a seizure-like activity and he was giving Ativan 2 mg IV about 10 minutes ago. I called for collateral information to his , Barbara Amanda, but she was unable to participate in the conversation at this moment and she will call me back. Review of Systems ROS Limitations: Unresponsive, Uncooperative Past Family Social History Coded Allergies: Penicillin (Verified Allergy, Mild, CAN'T REMEMBER, 12/05/07) Reported Medications Glimepiride 2 Mg Tab2 Mg PO DAILY #30 TAB Ref 0 Take with breakfast or first main meal 01/05/17 Donepezil 10 Mg Tab10 Mg PO DAILY #30 TAB Ref 0 01/05/17 Labetalol 100 Mg [id number] Mg PO BID Ref 0 01/05/17 Amlodipine 5 Mg Tab5 Mg PO DAILY #30 TAB Ref 0 01/05/17 Lisinopril 20 Mg Tab20 Mg PO BID #30 TAB Ref 0 01/05/17 Current Medications Medications (Trade) Dose Ordered Sig/Yesenia Route Start Time Stop Time Status Last Admin (D50w (Vial) Inj) 25 ml UNSCH PRN IV PUSH 01/05/17 20:00 (Glucagon Inj) 1 mg UNSCH PRN OTHER 01/05/17 20:00 (NS Flush) 2 ml UNSCH PRN IV FLUSH 01/05/17 20:30 (NS Flush) 2 ml BID IV FLUSH 01/05/17 21:00 01/05/17 22:27 (Tylenol) 650 mg Q4H PRN PO 01/05/17 20:30 (Zofran Inj) 4 mg Q6H PRN IVP 01/05/17 20:30 (Dulcolax Supp) 10 mg DAILY PRN RECTAL 01/05/17 20:30 (Colace) 100 mg Q12H PO 01/05/17 21:00 01/06/17 13:39 (Heparin Inj) 5,000 units Q12H SQ 01/05/17 21:00 01/06/17 13:47 (Narcan Inj) 0.4 mg UNSCH PRN IV 01/05/17 20:30 (Norvasc) 5 mg DAILY PO 01/06/17 09:00 01/06/17 13:40 (Aricept) 10 mg DAILY PO 01/06/17 09:00 01/06/17 13:40 (Trandate) 100 mg BID PO 01/06/17 09:00 (KCl) 40 meq DAILY PO 01/06/17 09:00 01/06/17 13:41 (Prinivil) 20 mg BID PO 01/06/17 09:00 01/06/17 13:41 (Flomax) 0.4 mg DAILY PO 01/06/17 09:00 01/06/17 13:41 Lorazepam 1 mg 1 mg Q15M PRN IV PUSH 01/06/17 11:45 (Cerebyx Inj/NS Inj) 70 ml @ 70 mls/hr ONCE ONCE IV 01/06/17 14:00 01/06/17 14:59 (SEROquel) 12.5 mg BID@09,12 PO 01/07/17 09:00 UNV (Haldol Inj) 2 mg Q8H PRN IM 01/06/17 14:15 UNV Family History Unknown Social History Patient lives with his Physical Exam Vital Signs Vital Signs Date Time Temp Pulse Resp B/P Pulse Ox O2 Delivery O2 Flow Rate FiO2 01/06/17 13:38 68 147/86 97 01/06/17 11:26 98.0 20 01/05/17 22:09 Nasal Cannula 1.00 I/O 01/05/17 01/05/17 01/06/17 08:00 16:00 00:00 Output Total 250 ml Balance -250 ml Lab Results WBC 9.1, Hgb 16, HCT 48.0, NA 142, K3.3, BUN 21, creatinine 1.2, AST 18, AST 23 , TSH 1.8, ammonium is less than 10, QTc interval is 470 Mental Status Examination At the moment of evaluation patient is sedated, uncooperative, mental status exam is limited due to the situation Appearance Elderly man, age appearing, [facility], fair hygiene, uncooperative at this moment Assessment & Plan Problem List: (1) Delirium Assessment & Plan: Patient with history of normal pressure hydrocephalus dementia, brought to the ER due to aggressive behavior and agitation at home under Guadalupe act. At the moment of this evaluation patient is uncooperative and sedated no able to provide any meaningful information for psychiatric assessment. Continue aggressive medical workup to rule out potential causes of underlying medical conditions related with delirium/dementia Avoid deliriogenic medications anticholinergics/benzodiazepine/narcotics as much as possible Continue sitter, 1:1 observation for safety We'll start Seroquel 12.5 mg twice a day for behavioral control, we'll order Haldol 2 mg IV every 3 hours when necessary aggressive behavior and agitation Frequent reorientation, appropriate light in the room, familiar faces around, frequent sensory stimulation, clock and calendar visible in the room I usually very helpful to avoid agitation and delirium. Collateral information is still pending. Patient will continue Guadalupe act on to full assessment can be done ICD Code: R41.0 Assessment & Plan Estimated LOS: Clovis Taylor MD Jan 06, 2017 14:32
[2017-01-06] MEDS: HALOPERIDOL LACTATE 5 MG/ML AMP IM PRN (15:40)
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
[2017-01-06] MEDS: PHENYTOIN SODIUM 100 MG CAP PO SCH ×2 (17:32→23:25)
[2017-01-07] VITALS (8 sets, daily range): BP systolic 111–164; BP diastolic 71–103; PULSE 74–87; RESP 17–22; TEMP 95.1–97.4; O2SAT 93–97
[2017-01-07] MEDS: PHENYTOIN SODIUM 100 MG CAP PO SCH ×3 (06:17→22:21)
[2017-01-07] MEDS: INSULIN ASPART SUPPLEMENTAL SCALE SQ SCH ×4 (06:20→21:00)
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
[2017-01-07] MEDS: HEPARIN SODIUM - SQ 10,000 UNITS/ML VIAL SQ SCH ×2 (09:00→22:21)
[2017-01-07] MEDS: QUEtiapine FUMARATE 25 MG TAB PO SCH ×2 (10:30→13:40)
[2017-01-07] MEDS: DOCUSATE SODIUM 100 MG CAP PO SCH ×2 (10:30→22:21)
[2017-01-07] MEDS: DONEPEZIL HCL 5 MG TAB PO SCH (10:31)
[2017-01-07] MEDS: POTASSIUM CHLORIDE 20 MEQ CONTROLLED RELEASE TAB PO SCH (10:33)
[2017-01-07] MEDS: LABETALOL HCL 100 MG TAB PO SCH ×2 (10:33→22:21)
[2017-01-07] MEDS: amLODIPine BESYLATE 5 MG TAB PO SCH (10:33)
[2017-01-07] MEDS: TAMSULOSIN HCL 0.4 MG CAP PO SCH (10:33)
[2017-01-07] MEDS: LISINOPRIL 20 MG TAB PO SCH ×2 (10:34→22:21)
--- NOTE | 2017-01-07 11:31 | HHI.PR ---
Subjective Patient symptoms today Pt resting comfortably. No complaints. Voiding. Objective Vital Signs Vital Signs Date Time Temp Pulse Resp B/P Pulse Ox O2 Delivery O2 Flow Rate FiO2 01/07/17 11:12 93 01/07/17 08:15 77 20 150/88 95 01/07/17 06:29 95.4 86 22 146/84 95 01/07/17 01:46 95.3 82 18 152/88 94 01/06/17 20:00 96.3 79 18 160/97 96 01/06/17 16:50 95.2 80 20 144/80 95 01/06/17 13:38 68 147/86 97 Intake & Output 01/07/17 01/07/17 07:00 19:00 Output Total 150 ml Balance -150 ml Output Urine Total 150 ml # Voids 2 4 # Bowel Movements 0 0 Result Diagram: 01/06/1760501/06/17605 Objective Remarks Abd:soft,nt,nd. Bladder not distended Medications and IVs Current Medications Medications (Trade) Dose Ordered Sig/Yesenia Route Start Time Stop Time Status Last Admin (D50w (Vial) Inj) 25 ml UNSCH PRN IV PUSH 01/05/17 20:00 (Glucagon Inj) 1 mg UNSCH PRN OTHER 01/05/17 20:00 (NS Flush) 2 ml UNSCH PRN IV FLUSH 01/05/17 20:30 (NS Flush) 2 ml BID IV FLUSH 01/05/17 21:00 01/06/17 23:26 (Tylenol) 650 mg Q4H PRN PO 01/05/17 20:30 (Zofran Inj) 4 mg Q6H PRN IVP 01/05/17 20:30 (Dulcolax Supp) 10 mg DAILY PRN RECTAL 01/05/17 20:30 (Colace) 100 mg Q12H PO 01/05/17 21:00 01/07/17 10:30 (Heparin Inj) 5,000 units Q12H SQ 01/05/17 21:00 01/07/17 09:00 (Narcan Inj) 0.4 mg UNSCH PRN IV 01/05/17 20:30 (Norvasc) 5 mg DAILY PO 01/06/17 09:00 01/07/17 10:33 (Aricept) 10 mg DAILY PO 01/06/17 09:00 01/07/17 10:31 (Trandate) 100 mg BID PO 01/06/17 09:00 01/07/17 10:33 (KCl) 40 meq DAILY PO 01/06/17 09:00 01/07/17 10:33 (Prinivil) 20 mg BID PO 01/06/17 09:00 01/07/17 10:34 (Flomax) 0.4 mg DAILY PO 01/06/17 09:00 01/07/17 10:33 (Ativan Inj) 1 mg Q15M PRN IV PUSH 01/06/17 11:45 (SEROquel) 12.5 mg BID@,12 PO 01/07/17 09:00 01/07/17 10:30 (Haldol Inj) 2 mg Q8H PRN IM 01/06/17 14:15 01/06/17 15:40 (Pill Splitter) 1 ea UNSCH PRN OTHER 01/06/17 14:15 (Dilantin) 100 mg Q8HR PO 01/06/17 16:00 01/07/17 06:17 Assessment and Plan Assessment and Plan 86 y.o male with BPH with obstruction Creatinine WNL Continue Flomax Call with questions. Yannick Merritt DO Jan 07, 2017 11:31
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
[2017-01-07] MEDS: SODIUM CHLORIDE 0.9% FLUSH 10 ML FLUSH IV FLUSH SCH (22:22)
[2017-01-08] VITALS (7 sets, daily range): BP systolic 147–196; BP diastolic 96–107; PULSE 76–96; RESP 16–20; TEMP 97.1–98.1; O2SAT 95–98
[2017-01-08] MEDS: ENALAPRILAT 1.25 MG/ML VIAL IV PUSH PRN (04:18)
--- NOTE | 2017-01-08 05:38 | MG ---
cc: MYRTLE HIGH MD Lab No: 17-6-4 Date: 01/07/2017 Age: 86 Sex: M Race: EEG RECORD NUMBER [id number] DATE OF 1930 INDICATIONS An 86-year-old with a history of mental status changes. FINDINGS Disorganized waveform with alpha, theta and delta frequencies occurring. Some mild asymmetric right frontal-central region slowing with [id number] comparison. 6-7 Hz posterior rhythm in the left hemisphere, 4-6 Hz on the right. Sharp transients at C3P3 epoch 24. He goes from a generalized slow state, potentially sleep to wakeful state. Tiny sharp transient right frontal at epoch 35. Limited driving with photic stimulation in the right hemisphere, reasonable on the left posterior. Sharp transient right greater than left central region at epoch 58. Good EEG variability reactivity. Appear to be possibly some spindles and K-complexes suggestive of Stage II sleep. Single lead EKG showing sinus rhythm. INTERPRETATION Mild to moderate encephalopathy with asymmetric right frontal-central slowing. Rare tiny sharp transients in that region. No active seizures. Good EEG variability and reactivity. Clinical correlation. Myrtle High MD MG/SSB /9:11 PM /5:20 AM
[2017-01-08] MEDS: PHENYTOIN SODIUM 100 MG CAP PO SCH ×3 (05:46→20:32)
[2017-01-08] MEDS: INSULIN ASPART SUPPLEMENTAL SCALE SQ SCH ×4 (07:00→21:00)
[2017-01-08] MEDS: amLODIPine BESYLATE 5 MG TAB PO SCH (09:00)
[2017-01-08] MEDS: DONEPEZIL HCL 5 MG TAB PO SCH (09:00)
[2017-01-08] MEDS: QUEtiapine FUMARATE 25 MG TAB PO SCH ×2 (09:00→12:00)
[2017-01-08] MEDS: TAMSULOSIN HCL 0.4 MG CAP PO SCH (09:00)
[2017-01-08] MEDS: SODIUM CHLORIDE 0.9% FLUSH 10 ML FLUSH IV FLUSH SCH ×2 (09:00→20:32)
[2017-01-08] MEDS: DOCUSATE SODIUM 100 MG CAP PO SCH ×2 (09:00→20:32)
[2017-01-08] MEDS: POTASSIUM CHLORIDE 20 MEQ CONTROLLED RELEASE TAB PO SCH (09:00)
[2017-01-08] MEDS: LABETALOL HCL 100 MG TAB PO SCH ×2 (09:00→20:31)
[2017-01-08] MEDS: LISINOPRIL 20 MG TAB PO SCH ×2 (09:00→20:31)
[2017-01-08] MEDS: HEPARIN SODIUM - SQ 10,000 UNITS/ML VIAL SQ SCH ×2 (10:10→20:32)
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
--- NOTE | 2017-01-08 14:18 | HHI.PYPN ---
Subjective Remarks Patient was seen today for psychiatric reevaluation, patient was found alert and eating his lunch with the help of nurse aide, patient says that he feels much better today, he reports good appetite and good mood. He denies depressive symptoms, he denies suicidal or homicidal ideation, he denies visual and auditory hallucinations. Patient is oriented in place, partially oriented in time, but he is unable to elaborate about the reason of his hospitalization. As per nurse in charge patient has been calm, cooperative, no agitation or aggressive behavior observed at this moment. Review of Systems Other No somatic complaints at this moment Objective Alert: Yes [place]: Person, Place Mood: Calm Affect: Appropriate Memory Intact: Comment (no formally assessed at this moment) Hallucinations: Other (he denies) Delusions: No Delusion Type: Other (none elicited) Suicidal: Ideation (he denies) Homicidal: Ideation (he denies) Insight/Judgment Poor Labs Test 01/08/17 11:44 Phenytoin (Dilantin) Level 12.1 MCG/ML Date/Time Procedure Status Source Growth 01/05/17 18:05 Aerobic Blood Culture - Preliminary Resulted Blood Peripheral NO GROWTH IN 3 DAYS 01/05/17 18:05 Anaerobic Blood Culture - Preliminary Resulted Blood Peripheral NO GROWTH IN 3 DAYS Vitals/IOs Vital Signs Date Time Temp Pulse Resp B/P Pulse Ox O2 Delivery O2 Flow Rate FiO2 01/08/17 12:00 98.1 86 16 172/98 95 01/07/17 18:16 21 01/05/17 22:09 Nasal Cannula 1.00 Assessment & Plan Problem List: (1) Delirium Assessment & Plan: On psychiatric evaluation there is no evidence of subjective or objective symptomatology of depression, anxiety or psychosis. There is visibly cognitive impairment most probably related with underlying chronic dementia, but no agitation or aggressive behavior present. Continue current psychotropics. There is no psychiatric contraindication to transfer the [facility] or discharge back home. ICD Code: R41.0 Assessment & Plan Estimated LOS: days Justification for Cont. Inpt. Patient does not meet criteria for involuntary psychiatric admission at this moment Clovis Baum MD Jan 08, 2017 14:18
[2017-01-08] MEDS: HALOPERIDOL LACTATE 5 MG/ML AMP IM PRN (21:19)
[2017-01-09] VITALS (9 sets, daily range): BP systolic 85–176; BP diastolic 58–100; PULSE 70–97; RESP 16–20; TEMP 95.7–97.6; O2SAT 92–98
[2017-01-09] MEDS: cloNIDine HCL 0.1 MG TAB PO PRN (01:02)
[2017-01-09] MEDS: ENALAPRILAT 1.25 MG/ML VIAL IV PUSH PRN ×2 (02:11→22:17)
[2017-01-09] MEDS: HALOPERIDOL LACTATE 5 MG/ML AMP IM PRN (04:55)
[2017-01-09] MEDS: PHENYTOIN SODIUM 100 MG CAP PO SCH ×3 (06:01→22:16)
[2017-01-09] MEDS: INSULIN ASPART SUPPLEMENTAL SCALE SQ SCH ×4 (06:09→22:19)
[2017-01-09] MEDS: amLODIPine BESYLATE 5 MG TAB PO SCH (09:00)
[2017-01-09] MEDS: LISINOPRIL 20 MG TAB PO SCH ×2 (09:00→22:16)
[2017-01-09] MEDS: LABETALOL HCL 100 MG TAB PO SCH ×2 (09:00→22:17)
[2017-01-09] MEDS: SODIUM CHLORIDE 0.9% FLUSH 10 ML FLUSH IV FLUSH SCH ×2 (10:29→22:18)
[2017-01-09] MEDS: POTASSIUM CHLORIDE 20 MEQ CONTROLLED RELEASE TAB PO SCH (10:30)
[2017-01-09] MEDS: TAMSULOSIN HCL 0.4 MG CAP PO SCH (10:30)
[2017-01-09] MEDS: DONEPEZIL HCL 5 MG TAB PO SCH (10:30)
[2017-01-09] MEDS: QUEtiapine FUMARATE 25 MG TAB PO SCH ×2 (10:30→12:36)
[2017-01-09] MEDS: DOCUSATE SODIUM 100 MG CAP PO SCH ×2 (10:31→22:16)
[2017-01-09] MEDS: HEPARIN SODIUM - SQ 10,000 UNITS/ML VIAL SQ SCH ×2 (10:31→22:18)
--- NOTE | 2017-01-09 17:16 | HHI.PR ---
Subjective Remarks stated his Name "Patrick" ff all commands appears comfortable Objective Vitals Vital Signs Date Time Temp Pulse Resp B/P Pulse Ox O2 Delivery O2 Flow Rate FiO2 01/09/17 16:32 96.4 97 16 138/87 97 01/09/17 12:49 96.5 84 16 111/71 95 01/09/17 09:42 90/60 01/09/17 09:00 95.7 70 16 85/58 95 01/09/17 05:09 97.6 89 17 132/90 98 01/09/17 03:00 76 125/88 01/09/17 02:03 144/93 01/09/17 01:02 97.2 79 17 169/100 98 01/08/17 20:00 97.3 96 20 196/96 96 I/O 01/08/17 01/08/17 01/08/17 01/09/17 01/09/17 01/09/17 07:00 15:00 23:00 07:00 15:00 23:00 Intake Total 120 ml 360 ml Balance 120 ml 360 ml Intake Oral 120 ml 360 ml # Voids 2 2 3 1 # Bowel Movements 1 0 1 Result Diagram: 01/06/17 0606 01/06/17 0606 Imaging Last Impressions Renal Ultrasound 01/06/17 0000 Signed Impressions: Service Date/Time: Friday, January 06, 2017 09:24 - CONCLUSION: Enlarged prostate. This does appear to extend into the posterior aspect of the bladder with soft tissue noted at this level. Gary Garcia MD Head CT 01/05/171751 Signed Impressions: Service Date/Time: Thursday, January 05, 2017 18:22 - CONCLUSION: 1. Right ventricular shunt catheter remains in place and is unchanged in position with the tip at the level of the foramen of Monro. 2. The ventricular system is stable and remains diffusely prominent. There is no acute hydrocephalus. 3. No acute hemorrhage or mass effect. 4. Stable area of encephalomalacia involving the right occipital lobe. Kelechi Salmon MD Chest X-Ray 01/05/171751 Signed Impressions: Service Date/Time: Thursday, January 05, 2017 18:31 - CONCLUSION: 1. Mild blunting of the right lateral costophrenic angle which could indicate scarring versus a small effusion. There are no identifiable infiltrates. 2. Shunt catheter tubing projected over the right side of the thorax. Kelechi Salmon MD Shunt Study (Imaging) 01/05/17 0000 Signed Impressions: Service Date/Time: Thursday, January 05, 2017 18:33 - CONCLUSION: The shunt tubing appears intact. Kelechi Salmon MD Objective Remarks awake, opened eyes and make some facial expressions when talked to anicteric no nuchal rigidity lungs no rales regular rhythm abdomen soft, nontender extremities no edema Procedures None. 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 Patient was brought into the emergency department emergency department via EMS as a Gu[place]upe act after becoming aggressive with family members found to have elevated troponin 0.16. Acute delirium - improved. Dementia New onset Seizure Hx of NPH s/p PHOTONICS ENGINEER shunt. - Shunt study indicates shunt tubing intact. - Psychiatry lifted guadalupe act. - New onset seizure. - Currently on Dilantin. EEG - non specific - PT consult - started on Seroquel bid- Elevated troponin 0.16 ASA daily Continue Nitropaste Serial troponins show troponin around 0.16, 0.17. No further work up. Hypertension- likely exacerbated by agitation- elevated- needs to be encouraged Labetalol 100mg BID- increase to 200 mg po bid Lisinopril 20mg BID, Amlodipine 5mg Qday. - prn IV Vasotec Acute kidney injury on Chronic kidney disease - BUN 23, creatinine 1.26 --> 1.02. Hypokalemia- replaced - recheck in am Urinary retention- BPH Urology evaluated patient. Recommended Tamsulosin. Diabetes mellitus hold oral medications at this time Accu-Cheks before meals at bedtime with low-dose sliding scale insulin coverage Full code. Heparin SQ. Discharge Plan: [facility] Justine Aiken MD Jan 09, 2017 17:16 Justine Aiken MD Jan 09, 2017 17:16 Justine Aiken MD Jan 09, 2017 17:16
[2017-01-10 04:00] VITALS: BP 163/99; PULSE 82; RESP 20; TEMP 96.5; O2SAT 93
[2017-01-10] MEDS: PHENYTOIN SODIUM 100 MG CAP PO SCH ×3 (04:31→23:46)
[2017-01-10] MEDS: ENALAPRILAT 1.25 MG/ML VIAL IV PUSH PRN (04:35)
[2017-01-10] MEDS: INSULIN ASPART SUPPLEMENTAL SCALE SQ SCH ×4 (04:46→21:00)
[2017-01-10 08:18] LABS: BICARBONATE 27.3 MEQ/L (21.0-32.0); POTASSIUM 3.8 MEQ/L (3.5-5.1)
[2017-01-10] MEDS: DOCUSATE SODIUM 100 MG CAP PO SCH ×2 (09:00→23:46)
[2017-01-10] MEDS: POTASSIUM CHLORIDE 20 MEQ CONTROLLED RELEASE TAB PO SCH (09:00)
[2017-01-10] MEDS: cloNIDine HCL 0.1 MG TAB PO PRN (10:36)
[2017-01-10] MEDS: LABETALOL HCL 100 MG TAB PO SCH ×2 (10:36→23:46)
[2017-01-10] MEDS: DONEPEZIL HCL 5 MG TAB PO SCH (10:36)
[2017-01-10] MEDS: TAMSULOSIN HCL 0.4 MG CAP PO SCH (10:36)
[2017-01-10] MEDS: LISINOPRIL 20 MG TAB PO SCH ×2 (10:37→23:52)
[2017-01-10] MEDS: amLODIPine BESYLATE 5 MG TAB PO SCH (10:37)
[2017-01-10] MEDS: QUEtiapine FUMARATE 25 MG TAB PO SCH ×2 (10:38→13:00)
[2017-01-10 10:39] VITALS: BP 192/103; PULSE 78; RESP 17; TEMP 96.3; O2SAT 96
[2017-01-10] MEDS: SODIUM CHLORIDE 0.9% FLUSH 10 ML FLUSH IV FLUSH SCH ×2 (10:39→21:00)
[2017-01-10] MEDS: HEPARIN SODIUM - SQ 10,000 UNITS/ML VIAL SQ SCH ×2 (10:39→23:47)
[2017-01-10] MEDS: SODIUM CHLOR 0.9% 1000 ML INJ 1,000 ML IV SCH (10:45)
[2017-01-10 13:56] VITALS: BP 158/86; PULSE 71; RESP 16; TEMP 95.8; O2SAT 97
--- NOTE | 2017-01-10 15:40 | HHI.PR ---
Subjective Remarks seen with and friend at bedside- he was able to identify them emotionally labile- crying then laughing and scowling next minute poor po intake Objective Vitals Vital Signs Date Time Temp Pulse Resp B/P Pulse Ox O2 Delivery O2 Flow Rate FiO2 01/10/17 13:56 95.8 71 16 158/86 97 01/10/17 10:39 96.3 78 17 192/103 96 01/10/17 04:00 96.5 82 20 163/99 93 01/09/17 20:00 96.1 81 20 176/98 92 01/09/17 16:32 96.4 97 16 138/87 97 I/O 01/09/17 01/09/17 01/09/17 01/10/17 01/10/17 01/10/17 07:00 15:00 23:00 07:00 15:00 23:00 Intake Total 360 ml 240 ml 60 ml Balance 360 ml 240 ml 60 ml Intake Oral 360 ml 240 ml 60 ml # Voids 3 3 4 # Bowel Movements 1 0 0 Result Diagram: 01/06/17 0606 01/10/17 0717 Imaging Last Impressions Renal Ultrasound 01/06/17 0000 Signed Impressions: Service Date/Time: Friday, January 06, 2017 09:24 - CONCLUSION: Enlarged prostate. This does appear to extend into the posterior aspect of the bladder with soft tissue noted at this level. Gary Garcia MD Head CT 01/05/171751 Signed Impressions: Service Date/Time: Thursday, January 05, 2017 18:22 - CONCLUSION: 1. Right ventricular shunt catheter remains in place and is unchanged in position with the tip at the level of the foramen of Monro. 2. The ventricular system is stable and remains diffusely prominent. There is no acute hydrocephalus. 3. No acute hemorrhage or mass effect. 4. Stable area of encephalomalacia involving the right occipital lobe. Kelechi Salmon MD Chest X-Ray 01/05/171751 Signed Impressions: Service Date/Time: Thursday, January 05, 2017 18:31 - CONCLUSION: 1. Mild blunting of the right lateral costophrenic angle which could indicate scarring versus a small effusion. There are no identifiable infiltrates. 2. Shunt catheter tubing projected over the right side of the thorax. Kelechi Salmon MD Shunt Study (Imaging) 01/05/17 0000 Signed Impressions: Service Date/Time: Thursday, January 05, 2017 18:33 - CONCLUSION: The shunt tubing appears intact. Kelechi Salmon MD Objective Remarks awake, crying and scowling next, then laughing anicteric no nuchal rigidity lungs no rales regular rhythm abdomen soft, nontender extremities no edema Procedures None. A/P Assessment and Plan This is an elderly 86 year old male patient with a past medical history which includes: Dementia, normal pressure hydrocephalus status post CORPORATE TRAINER shunt, diabetes mellitus, hypertension. Patient was brought into the emergency department emergency department via EMS as a [place]upe act after becoming aggressive with family members found to have elevated troponin 0.16. Acute delirium Dementia- advancing New onset Seizure- no further episodes here Hx of NPH s/p CORPORATE TRAINER shunt. - Shunt study indicates shunt tubing intact. - Psychiatry lifted guadalupe act. - Currently on Dilantin. EEG - non specific - PT consult - started on Seroquel bid- monitor Elevated troponin 0.16 ASA daily Continue Nitropaste Serial troponins show troponin around 0.16, 0.17. No further work up. Hypertension- likely exacerbated by agitation- elevated- needs to be encouraged Labetalol 100mg BID- increase to 200 mg po bid Lisinopril 20mg BID, Amlodipine 5mg Qday. - prn IV Vasotec Acute kidney injury on Chronic kidney disease - creatinine up-- due to poor po start IVF. d/w her about PEG- to meet nutrtional requirements- she states that they don't want any- from previous discussions between themselves Hypokalemia- corrected Urinary retention- BPH Urology evaluated patient. Recommended Tamsulosin. Diabetes mellitus hold oral medications at this time Accu-Cheks before meals at bedtime with low-dose sliding scale insulin coverage Full code. Heparin SQ. Discharge Plan: SNF /[facility]USTY d/w who is the POA- she will be unable to take care of him Justine Aiken MD Jan 10, 2017 15:40 Justine Aiken MD Jan 10, 2017 15:40
[2017-01-10 17:39] VITALS: BP 184/92; PULSE 69; RESP 16; TEMP 95.8; O2SAT 94
[2017-01-10 20:00] VITALS: BP 189/106; PULSE 83; RESP 22; TEMP 95.6; O2SAT 98
[2017-01-11] VITALS: BP 178/94; PULSE 80; RESP 20; TEMP 95.8; O2SAT 97
[2017-01-11] MEDS: cloNIDine HCL 0.1 MG TAB PO PRN (00:05)
[2017-01-11 04:00] VITALS: BP 151/77; PULSE 78; RESP 20; TEMP 95.9; O2SAT 97
[2017-01-11] MEDS: PHENYTOIN SODIUM 100 MG CAP PO SCH ×3 (04:51→23:03)
[2017-01-11] MEDS: INSULIN ASPART SUPPLEMENTAL SCALE SQ SCH ×4 (04:54→21:00)
[2017-01-11 08:00] VITALS: BP 165/94; PULSE 67; RESP 20; TEMP 95.8; O2SAT 98
[2017-01-11] MEDS: QUEtiapine FUMARATE 25 MG TAB PO SCH ×2 (08:53→12:19)
[2017-01-11] MEDS: DOCUSATE SODIUM 100 MG CAP PO SCH ×2 (08:53→23:02)
[2017-01-11] MEDS: LABETALOL HCL 100 MG TAB PO SCH (08:53)
[2017-01-11] MEDS: TAMSULOSIN HCL 0.4 MG CAP PO SCH (08:54)
[2017-01-11] MEDS: SODIUM CHLORIDE 0.9% FLUSH 10 ML FLUSH IV FLUSH SCH ×2 (08:54→21:00)
[2017-01-11] MEDS: HEPARIN SODIUM - SQ 10,000 UNITS/ML VIAL SQ SCH ×2 (08:54→23:03)
[2017-01-11] MEDS: LISINOPRIL 20 MG TAB PO SCH ×2 (08:54→23:02)
[2017-01-11] MEDS: amLODIPine BESYLATE 5 MG TAB PO SCH (08:54)
[2017-01-11] MEDS: DONEPEZIL HCL 5 MG TAB PO SCH (08:54)
[2017-01-11] MEDS: POTASSIUM CHLORIDE 20 MEQ CONTROLLED RELEASE TAB PO SCH (08:54)
[2017-01-11] MEDS: SODIUM CHLOR 0.9% 1000 ML INJ 1,000 ML IV SCH (08:55)
--- NOTE | 2017-01-11 09:44 | HHI.PR ---
Subjective Remarks very much improve- oriented to person , place- [place], knows the President ate 80 % no complains smiling and cooperative Objective Vitals Vital Signs Date Time Temp Pulse Resp B/P Pulse Ox O2 Delivery O2 Flow Rate FiO2 01/11/17 08:00 95.8 67 20 165/94 98 01/11/17 04:00 95.9 78 20 151/77 97 01/11/17 00:00 95.8 80 20 178/94 97 01/10/17 20:00 95.6 83 22 189/106 98 01/10/17 17:39 95.8 69 16 184/92 94 01/10/17 13:56 95.8 71 16 158/86 97 01/10/17 10:39 96.3 78 17 192/103 96 I/O 01/10/17 01/10/17 01/10/17 01/11/17 01/11/17 01/11/17 07:00 15:00 23:00 07:00 15:00 23:00 Intake Total 60 ml 240 ml 1120 ml Balance 60 ml 240 ml 1120 ml Intake Oral 60 ml 240 ml 120 ml IV Total 1000 ml # Voids 4 2 4 # Bowel Movements 0 0 1 Result Diagram: 01/10/17 0717 Imaging Last Impressions Renal Ultrasound 01/06/17 0000 Signed Impressions: Service Date/Time: Friday, January 06, 2017 09:24 - CONCLUSION: Enlarged prostate. This does appear to extend into the posterior aspect of the bladder with soft tissue noted at this level. Gary Garcia MD Head CT 01/05/171751 Signed Impressions: Service Date/Time: Thursday, January 05, 2017 18:22 - CONCLUSION: 1. Right ventricular shunt catheter remains in place and is unchanged in position with the tip at the level of the foramen of Monro. 2. The ventricular system is stable and remains diffusely prominent. There is no acute hydrocephalus. 3. No acute hemorrhage or mass effect. 4. Stable area of encephalomalacia involving the right occipital lobe. Kelechi Salmon MD Chest X-Ray 01/05/171751 Signed Impressions: Service Date/Time: Thursday, January 05, 2017 18:31 - CONCLUSION: 1. Mild blunting of the right lateral costophrenic angle which could indicate scarring versus a small effusion. There are no identifiable infiltrates. 2. Shunt catheter tubing projected over the right side of the thorax. Kelechi Salmon MD Shunt Study (Imaging) 01/05/17 0000 Signed Impressions: Service Date/Time: Thursday, January 05, 2017 18:33 - CONCLUSION: The shunt tubing appears intact. Kelechi Salmon MD Objective Remarks awake, alert, smiling, cooperative and responds appropriately anicteric no nuchal rigidity lungs no rales regular rhythm abdomen soft, nontender extremities no edema moves all extremities equally Procedures None. A/P Assessment and Plan This is an elderly 86 year old male patient with a past medical history which includes: Dementia, normal pressure hydrocephalus status post DESK OPERATOR shunt, diabetes mellitus, hypertension. Patient was brought into the emergency department emergency department via EMS as a [place] act after becoming aggressive with family members found to have elevated troponin 0.16. Acute delirium - improved. Dementia- baseline New onset Seizure- no further episodes Hx of NPH s/p DESK OPERATOR shunt. - Shunt study indicates shunt tubing intact. - Psychiatry lifted guadalupe act. - Currently on Dilantin. EEG - non specific - PT consult - out of bed- increase activity as tolerated - on Seroquel- low dose bid- continue to monitor Elevated troponin 0.16 ASA daily Serial troponins show troponin around 0.16, 0.17. No further work up. Hypertension- uncontrolled - likely exacerbated by agitation- elevated- needs to be encouraged Labetalol 200 mg po bid- increase to 300 mg po bid Lisinopril 20mg BID, Amlodipine 5mg Qday. -- increase to 10 mg daily Clonidine prn Acute kidney injury on Chronic kidney disease - BUN 23, creatinine 1.26 --> 1.02. - started on IVF 01/10. check BMP today Urinary retention- BPH Microscopic hematuria Urology evaluated patient. Recommended Tamsulosin. resolved Diabetes mellitus hold oral medications at this time Accu-Cheks before meals at bedtime with low-dose sliding scale insulin coverage Full code. Heparin SQ. Discharge Plan: Potential discharge to SNF on 01/08/2017. Justine Aiken MD Jan 11, 2017 09:44
[2017-01-11] MEDS ORDERED: amLODIPine BESYLATE 5 MG TAB PO ONE (11:00)
[2017-01-11 12:00] VITALS: BP 148/72; PULSE 69; RESP 20; TEMP 96.8; O2SAT 95
[2017-01-11 14:11] LABS: BICARBONATE 21.8 MEQ/L (21.0-32.0); POTASSIUM 4.7 MEQ/L (3.5-5.1)
[2017-01-11 16:00] VITALS: BP 163/92; PULSE 78; RESP 20; TEMP 97.3; O2SAT 96
[2017-01-11] MEDS ORDERED: ISOSORBIDE MONONITRATE 30 MG TAB PO SCH (17:30)
[2017-01-11 20:00] VITALS: BP 162/86; PULSE 75; RESP 18; TEMP 97; O2SAT 98
[2017-01-11] MEDS: LABETALOL HCL 300 MG TAB PO SCH (23:23)
[2017-01-12] VITALS: BP 167/93; PULSE 74; RESP 20; TEMP 95.8; O2SAT 98
[2017-01-12] MEDS: SODIUM CHLOR 0.9% 1000 ML INJ 1,000 ML IV SCH ×2 (02:45→16:46)
[2017-01-12 04:00] VITALS: BP 181/87; PULSE 72; RESP 20; TEMP 93.2; O2SAT 97
[2017-01-12] MEDS: PHENYTOIN SODIUM 100 MG CAP PO SCH ×3 (06:33→22:20)
[2017-01-12] MEDS: INSULIN ASPART SUPPLEMENTAL SCALE SQ SCH ×4 (06:37→21:00)
[2017-01-12] MEDS ORDERED: ISOSORBIDE MONONITRATE 30 MG TAB PO SCH (07:00)
[2017-01-12 08:00] VITALS: BP 151/75; PULSE 75; RESP 18; TEMP 96.5; O2SAT 99
[2017-01-12] MEDS: SODIUM CHLORIDE 0.9% FLUSH 10 ML FLUSH IV FLUSH SCH ×2 (09:00→21:00)
[2017-01-12] MEDS: DOCUSATE SODIUM 100 MG CAP PO SCH ×2 (09:52→22:20)
[2017-01-12] MEDS: DONEPEZIL HCL 5 MG TAB PO SCH (09:53)
[2017-01-12] MEDS: LISINOPRIL 20 MG TAB PO SCH ×2 (09:53→22:21)
[2017-01-12] MEDS: QUEtiapine FUMARATE 25 MG TAB PO SCH ×2 (09:53→11:39)
[2017-01-12] MEDS: TAMSULOSIN HCL 0.4 MG CAP PO SCH (09:54)
[2017-01-12] MEDS: HEPARIN SODIUM - SQ 10,000 UNITS/ML VIAL SQ SCH ×2 (09:55→22:21)
[2017-01-12] MEDS: POTASSIUM CHLORIDE 20 MEQ CONTROLLED RELEASE TAB PO SCH (10:01)
[2017-01-12 10:20] LABS: BICARBONATE 25.5 MEQ/L (21.0-32.0); POTASSIUM 3.9 MEQ/L (3.5-5.1)
[2017-01-12] MEDS: LABETALOL HCL 300 MG TAB PO SCH ×2 (11:33→22:22)
[2017-01-12 12:00] VITALS: BP_SYST 114; BP_SYST 122; BP_DIAS 54; BP_DIAS 73; PULSE 119; PULSE 77; RESP 20; RESP 21; TEMP 100.1; TEMP 96.1; O2SAT 94; O2SAT 95
--- NOTE | 2017-01-12 14:32 | HHI.PR ---
Subjective Remarks awake and alert, smiling and interactive- able to identify- and daughter at bedside, ff commands Objective Vitals Vital Signs Date Time Temp Pulse Resp B/P Pulse Ox O2 Delivery O2 Flow Rate FiO2 01/12/17 12:00 100.1 119 20 114/54 94 01/12/17 08:00 96.5 75 18 151/75 99 01/12/17 04:00 93.2 72 20 181/87 97 01/12/17 00:00 95.8 74 20 167/93 98 01/11/17 20:00 97.0 75 18 162/86 98 01/11/17 16:00 97.3 78 20 163/92 96 I/O 01/11/17 01/11/17 01/11/17 01/12/17 01/12/17 01/12/17 07:00 15:00 23:00 07:00 15:00 23:00 Intake Total 1120 ml Balance 1120 ml Intake Oral 120 ml IV Total 1000 ml # Voids 4 2 5 # Bowel Movements 1 0 Result Diagram: 01/12/17 0816 Imaging Last Impressions Renal Ultrasound 01/06/17 0000 Signed Impressions: Service Date/Time: Friday, January 06, 2017 09:24 - CONCLUSION: Enlarged prostate. This does appear to extend into the posterior aspect of the bladder with soft tissue noted at this level. Gary Garcia MD Head CT 01/05/171751 Signed Impressions: Service Date/Time: Thursday, January 05, 2017 18:22 - CONCLUSION: 1. Right ventricular shunt catheter remains in place and is unchanged in position with the tip at the level of the foramen of Monro. 2. The ventricular system is stable and remains diffusely prominent. There is no acute hydrocephalus. 3. No acute hemorrhage or mass effect. 4. Stable area of encephalomalacia involving the right occipital lobe. Kelechi Salmon MD Chest X-Ray 01/05/171751 Signed Impressions: Service Date/Time: Thursday, January 05, 2017 18:31 - CONCLUSION: 1. Mild blunting of the right lateral costophrenic angle which could indicate scarring versus a small effusion. There are no identifiable infiltrates. 2. Shunt catheter tubing projected over the right side of the thorax. Kelechi Salmon MD Shunt Study (Imaging) 01/05/17 0000 Signed Impressions: Service Date/Time: Thursday, January 05, 2017 18:33 - CONCLUSION: The shunt tubing appears intact. Kelechi Salmon MD Objective Remarks awake, alert, smiling, cooperative and responds appropriately anicteric no nuchal rigidity lungs no rales regular rhythm abdomen soft, nontender extremities no edema moves all extremities equally Procedures None. A/P Assessment and Plan This is an elderly 86 year old male patient with a past medical history which includes: Dementia, normal pressure hydrocephalus status post WEIGHT AND TEST BAR CLERK shunt, diabetes mellitus, hypertension. Patient was brought into the emergency department emergency department via EMS as a [place]upe act after becoming aggressive with family members found to have elevated troponin 0.16. Acute delirium - improved. Dementia- baseline New onset Seizure- no further episodes Hx of NPH s/p WEIGHT AND TEST BAR CLERK shunt. - Shunt study indicates shunt tubing intact. - Psychiatry lifted guadalupe act. - Currently on Dilantin. EEG - no active seizure activity. non specific - PT consult - out of bed- increase activity as tolerated - on Seroquel- low dose bid- continue to monitor - ff by neurology- - Dr. Mendosa to see patient tonight Elevated troponin 0.16 ASA daily Serial troponins show troponin around 0.16, 0.17. No further work up. Hypertension- uncontrolled - likely exacerbated by agitation- elevated- needs to be encouraged- improved Labetalol 200 mg po bid- increase to 300 mg po bid Lisinopril 20mg BID, Amlodipine 5mg Qday. -- increase to 10 mg daily Clonidine prn Acute kidney injury on Chronic kidney disease - BUN 23, creatinine 1.26 --> 1.02. - improved Urinary retention- BPH Microscopic hematuria Urology evaluated patient. Recommended Tamsulosin. patient voiding spontaneously Diabetes mellitus hold oral medications at this time Accu-Cheks before meals at bedtime with low-dose sliding scale insulin coverage Full code. Heparin SQ. Discharge Plan: Potential discharge to SNF CM consult- in Justine Santos MD Jan 12, 2017 14:32
[2017-01-12 16:00] VITALS: BP 134/75; PULSE 72; RESP 20; TEMP 98.3; O2SAT 96
--- NOTE | 2017-01-12 20:44 | HHI.PR ---
Review/Management Diagnosis NPH with SEAMLESS HOSIERY KNITTER shunt--ventricular size is stable on CT dementia Sz probably secondary to dementia--stable on dph. He may be exhibiting some post ictal confusion even this far out from sz since he appeared to have had several sz. Plan continue dilantin at current dose ok form neurology standpoint to d/c to SNF when ok with primary service Diagnosis/Plan: Subjective Subjective Comments No acute events reported No recurrent seizures. Active Medications Current Medications Medications (Trade) Dose Ordered Sig/Yesenia Route Start Time Stop Time Status Last Admin (D50w (Vial) Inj) 25 ml UNSCH PRN IV PUSH 01/05/17 20:00 (Glucagon Inj) 1 mg UNSCH PRN OTHER 01/05/17 20:00 (NS Flush) 2 ml UNSCH PRN IV FLUSH 01/05/17 20:30 (NS Flush) 2 ml BID IV FLUSH 01/05/17 21:00 01/10/17 10:39 (Tylenol) 650 mg Q4H PRN PO 01/05/17 20:30 (Zofran Inj) 4 mg Q6H PRN IVP 01/05/17 20:30 (Dulcolax Supp) 10 mg DAILY PRN RECTAL 01/05/17 20:30 (Colace) 100 mg Q12H PO 01/05/17 21:00 01/12/17 09:52 (Heparin Inj) 5,000 units Q12H SQ 01/05/17 21:00 01/12/17 09:55 (Narcan Inj) 0.4 mg UNSCH PRN IV 01/05/17 20:30 (Aricept) 10 mg DAILY PO 01/06/17 09:00 01/12/17 09:53 (KCl) 40 meq DAILY PO 01/06/17 09:00 01/12/17 10:01 (Prinivil) 20 mg BID PO 01/06/17 09:00 01/12/17 09:53 (Flomax) 0.4 mg DAILY PO 01/06/17 09:00 01/12/17 09:54 (Ativan Inj) 1 mg Q15M PRN IV PUSH 01/06/17 11:45 (SEROquel) 12.5 mg BID@09,12 PO 01/07/17 09:00 01/12/17 11:39 (Haldol Inj) 2 mg Q8H PRN IM 01/06/17 14:15 01/09/17 04:55 (Pill Splitter) 1 ea UNSCH PRN OTHER 01/06/17 14:15 (Dilantin) 100 mg Q8HR PO 01/06/17 16:00 01/12/17 13:46 Clonidine 0.1 mg 0.1 mg Q6H PRN PO 01/08/17 12:00 01/11/17 00:05 (NS 1000 ml Inj) 1,000 ml @ 42 mls/hr [id number] IV 01/10/17 10:45 01/11/17 08:55 (Trandate) 300 mg BID PO 01/11/17 21:00 01/12/17 11:33 (Norvasc) 10 mg DAILY PO 01/12/17 09:00 01/12/17 09:54 Allergies Allergies Coded Allergies Penicillin (Verified Allergy, Mild, CAN'T REMEMBER, 12/05/07) Exam I&O / VS 01/11/17 01/11/17 01/12/17 15:00 23:00 07:00 # Voids 2 5 # Bowel Movements 0 Vital Signs Date Time Temp Pulse Resp B/P Pulse Ox O2 Delivery O2 Flow Rate FiO2 01/12/17 16:00 98.3 72 20 134/75 96 01/12/17 12:00 96.1 77 21 122/73 95 01/12/17 08:00 96.5 75 18 151/75 99 01/12/17 04:00 93.2 72 20 181/87 97 01/12/17 00:00 95.8 74 20 167/93 98 Exam Comments alert, disoriented to date, follows simple commands, moderately confused CN 2-12 normal MOTOR-5/5 BUE and BLE Objective Micro and Labs Laboratory Tests Test 01/12/17 08:16 Sodium Level 144 Potassium Level 3.9 Chloride Level 108 Carbon Dioxide Level 25.5 Anion Gap 11 Blood Urea Nitrogen 34 Creatinine 1.24 Estimat Glomerular Filtration 55 Rate Random Glucose 110 Calcium Level 9.1 Nakul Mendosa PhD MD Jan 12, 2017 20:44
[2017-01-12 21:35] VITALS: BP 166/86; PULSE 73; RESP 19; TEMP 96.5; O2SAT 98
[2017-01-13] VITALS: BP 153/89; PULSE 72; RESP 19; TEMP 96.1; O2SAT 95
[2017-01-13 04:36] VITALS: BP 163/92; PULSE 71; RESP 19; TEMP 97.3; O2SAT 97
[2017-01-13] MEDS: PHENYTOIN SODIUM 100 MG CAP PO SCH ×2 (05:55→14:18)
[2017-01-13] MEDS: INSULIN ASPART SUPPLEMENTAL SCALE SQ SCH ×2 (05:56→11:00)
[2017-01-13 08:00] VITALS: BP 148/85; PULSE 68; RESP 21; TEMP 97.5; O2SAT 95
[2017-01-13] MEDS: SODIUM CHLORIDE 0.9% FLUSH 10 ML FLUSH IV FLUSH SCH (09:00)
[2017-01-13 09:50] LABS: BICARBONATE 24.5 MEQ/L (21.0-32.0); POTASSIUM 3.9 MEQ/L (3.5-5.1)
[2017-01-13] MEDS: POTASSIUM CHLORIDE 20 MEQ CONTROLLED RELEASE TAB PO SCH (10:10)
[2017-01-13] MEDS: DONEPEZIL HCL 5 MG TAB PO SCH (10:10)
[2017-01-13] MEDS: DOCUSATE SODIUM 100 MG CAP PO SCH (10:10)
[2017-01-13] MEDS: QUEtiapine FUMARATE 25 MG TAB PO SCH ×2 (10:10→12:00)
[2017-01-13] MEDS: LISINOPRIL 20 MG TAB PO SCH (10:11)
[2017-01-13] MEDS: TAMSULOSIN HCL 0.4 MG CAP PO SCH (10:11)
[2017-01-13] MEDS: LABETALOL HCL 300 MG TAB PO SCH (10:11)
[2017-01-13] MEDS: HEPARIN SODIUM - SQ 10,000 UNITS/ML VIAL SQ SCH (10:12)
--- NOTE | 2017-01-13 10:43 | HHI.PR ---
Subjective Remarks seen with daughter at bedside awake and alert did well with PT this am ate well sometimes a little emotional- per daughter baseline Objective Vitals Vital Signs Date Time Temp Pulse Resp B/P Pulse Ox O2 Delivery O2 Flow Rate FiO2 01/13/17 08:00 97.5 68 21 148/85 95 01/13/17 04:36 97.3 71 19 163/92 97 01/13/17 00:00 96.1 72 19 153/89 95 01/12/17 21:35 96.5 73 19 166/86 98 01/12/17 16:00 98.3 72 20 134/75 96 01/12/17 12:00 96.1 77 21 122/73 95 I/O 01/12/17 01/12/17 01/12/17 01/13/17 01/13/17 01/13/17 07:00 15:00 23:00 07:00 15:00 23:00 # Voids 5 3 2 # Bowel Movements 0 Result Diagram: 01/13/17816 Imaging Last Impressions Renal Ultrasound 01/06/17 0000 Signed Impressions: Service Date/Time: Friday, January 06, 2017 09:24 - CONCLUSION: Enlarged prostate. This does appear to extend into the posterior aspect of the bladder with soft tissue noted at this level. Gary Garcia MD Head CT 01/05/171751 Signed Impressions: Service Date/Time: Thursday, January 05, 2017 18:22 - CONCLUSION: 1. Right ventricular shunt catheter remains in place and is unchanged in position with the tip at the level of the foramen of Monro. 2. The ventricular system is stable and remains diffusely prominent. There is no acute hydrocephalus. 3. No acute hemorrhage or mass effect. 4. Stable area of encephalomalacia involving the right occipital lobe. Kelechi Salmon MD Chest X-Ray 01/05/171751 Signed Impressions: Service Date/Time: Thursday, January 05, 2017 18:31 - CONCLUSION: 1. Mild blunting of the right lateral costophrenic angle which could indicate scarring versus a small effusion. There are no identifiable infiltrates. 2. Shunt catheter tubing projected over the right side of the thorax. Kelechi Salmon MD Shunt Study (Imaging) 01/05/17 0000 Signed Impressions: Service Date/Time: Thursday, January 05, 2017 18:33 - CONCLUSION: The shunt tubing appears intact. Kelechi Salmon MD Objective Remarks awake, alert, smiling, cooperative and responds appropriately anicteric no nuchal rigidity lungs no rales regular rhythm abdomen soft, nontender extremities no edema moves all extremities equally Procedures None. 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 Patient was brought into the emergency department emergency department via EMS as a [place] act after becoming aggressive with family members found to have elevated troponin 0.16. Acute delirium - improved. Dementia- baseline New onset Seizure- no further episodes Hx of NPH s/p PEDIATRIC CLINICAL NURSE SPECIALIST shunt. - Shunt study indicates shunt tubing intact. - Psychiatry lifted guadalupe act. - Currently on Dilantin. 100 mg po q8 EEG - no active seizure activity. non specific - PT ff out of bed- increase activity as tolerated - on Seroquel- low dose bid- doing well - ff by neurology- cleared for DC by Dr. Mendosa- OP ff up PT/Speech therapy daily. cognitive therapy daily Elevated troponin 0.16 ASA daily Serial troponins show troponin around 0.16, 0.17. No further work up. Hypertension-- likely exacerbated by agitation- elevated- needs to be encouraged - improved Labetalol 200 mg po bid- increase to 300 mg po bid Lisinopril 20mg BID, Amlodipine 5mg Qday. -- increase to 10 mg daily Clonidine prn Acute kidney injury on Chronic kidney disease -- improved- baseline Urinary retention- BPH Microscopic hematuria Urology evaluated patient. On Tamsulosin. patient voiding spontaneously Diabetes mellitus hold oral medications at this time Accu-Cheks before meals at bedtime with low-dose sliding scale insulin coverage Full code. Heparin SQ. SNF today- signature- d/w daughter and CM Justine Aiken MD Jan 13, 2017 10:43
[2017-01-13] MEDS ORDERED: QUET1TAB7 PO (10:47)
[2017-01-13] MEDS ORDERED: TAMS5CAP PO (10:47)
[2017-01-13] MEDS ORDERED: DILA100C PO (10:47)
[2017-01-13] MEDS ORDERED: DOCU1CAP39 PO (10:47)
[2017-01-13] MEDS ORDERED: NOVOLOGSS SQ (10:47)
[2017-01-13] MEDS ORDERED: POTA20TA5 PO (10:51)
[2017-01-13] MEDS ORDERED: LABE300T PO (10:51)
[2017-01-13] MEDS ORDERED: AMLO10 PO (10:51)
--- NOTE | 2017-01-13 10:52 | HHI.DS ---
Discharge Summary Admission Date Jan 05, 2017 at 19:37 Discharge Date: Jan 13, 2017 Admitting Diagnosis AMS, intermediate troponin (1) Delirium ICD Code: R41.0 Diagnosis: Principal (2) NPH (normal pressure hydrocephalus) ICD Code: G91.2 Diagnosis: Secondary Procedures None. Brief History - From Admission This is an elderly 86 year old male patient with a past medical history which includes: Dementia, normal pressure hydrocephalus status post PIN MACHINE TENDER shunt, diabetes mellitus, hypertension. Patient was brought into the emergency department emergency department via EMS as a [place] act. According to the police affidavit the patient's family called police because the patient has had become aggressive and had kicked and pushed his family members. Patient is alert and oriented to person only. Patient is a poor historian answers yes to all questions including chest pain, dysuria abd pain, SOB. unable to elaborate or give further details. Unable to follow commands. Review of ER documentation , "The patient denies any chest pain, shortness breath, nausea, vomiting, or abdominal pain." History of reliable. Patient does not appear to be in any acute distress at this time EKG reviewed and reveals ectopic atrial rhythm rate of [address] changes identified Troponin elevated at 0.16 CBC/BMP: 01/13/17 0817 Significant Findings Laboratory Tests Test 01/11/17 01/12/17 01/13/17 13:00 08:16 08:17 Chloride Level 110 MEQ/L 108 MEQ/L 110 MEQ/L (98-107) (98-107) (98-107) Blood Urea Nitrogen 37 MG/DL (7-18) 34 MG/DL (7-18) 26 MG/DL (7-18) Creatinine 1.41 MG/DL (0.60-1.30) Estimat Glomerular Filtration 48 ML/MIN (>89) 55 ML/MIN (>89) 66 ML/MIN (>89) Rate Random Glucose 140 MG/DL 110 MG/DL 108 MG/DL (74-106) (74-106) (74-106) Imaging Last Impressions Renal Ultrasound 01/06/17 0000 Signed Impressions: Service Date/Time: Friday, January 06, 2017 09:24 - CONCLUSION: Enlarged prostate. This does appear to extend into the posterior aspect of the bladder with soft tissue noted at this level. Gary Garcia MD Head CT 01/05/171751 Signed Impressions: Service Date/Time: Thursday, January 05, 2017 18:22 - CONCLUSION: 1. Right ventricular shunt catheter remains in place and is unchanged in position with the tip at the level of the foramen of Monro. 2. The ventricular system is stable and remains diffusely prominent. There is no acute hydrocephalus. 3. No acute hemorrhage or mass effect. 4. Stable area of encephalomalacia involving the right occipital lobe. Kelechi Salmon MD Chest X-Ray 01/05/171751 Signed Impressions: Service Date/Time: Thursday, January 05, 2017 18:31 - CONCLUSION: 1. Mild blunting of the right lateral costophrenic angle which could indicate scarring versus a small effusion. There are no identifiable infiltrates. 2. Shunt catheter tubing projected over the right side of the thorax. Kelechi Salmon MD Shunt Study (Imaging) 01/05/17 0000 Signed Impressions: Service Date/Time: Thursday, January 05, 2017 18:33 - CONCLUSION: The shunt tubing appears intact. Kelechi Salmon MD PE at Discharge awake, alert, smiling, cooperative and responds appropriately anicteric no nuchal rigidity lungs no rales regular rhythm abdomen soft, nontender extremities no edema moves all extremities equally Pt update on day of discharge awake and alert, oreinted x 3interactive, emotional moves all extremites, ff commands po intake good Hospital Course This is an elderly 86 year old male patient with a past medical history which includes: Dementia, normal pressure hydrocephalus status post PIN MACHINE TENDER shunt, diabetes mellitus, hypertension. Patient was brought into the emergency department emergency department via EMS as a [place] act after becoming aggressive with family members found to have elevated troponin 0.16. Acute delirium - improved. Dementia- baseline New onset Seizure- no further episodes Hx of NPH s/p PIN MACHINE TENDER shunt. - Shunt study indicates shunt tubing intact. - Psychiatry lifted guadalupe act. - Currently on Dilantin. 100 mg po q8 EEG - no active seizure activity. non specific - PT ff out of bed- increase activity as tolerated - on Seroquel- low dose bid- doing well - ff by neurology- cleared for DC by Dr. Mendosa- OP ff up PT/Speech therapy daily. cognitive therapy daily Elevated troponin 0.16 ASA daily Serial troponins show troponin around 0.16, 0.17. No further work up. Hypertension-- likely exacerbated by agitation- elevated- needs to be encouraged - improved Labetalol 200 mg po bid- increase to 300 mg po bid Lisinopril 20mg BID, Amlodipine 5mg Qday. -- increase to 10 mg daily Clonidine prn Acute kidney injury on Chronic kidney disease -- improved- baseline Urinary retention- BPH Microscopic hematuria Urology evaluated patient. On Tamsulosin. patient voiding spontaneously Diabetes mellitus hold oral medications at this time Accu-Cheks before meals at bedtime with low-dose sliding scale insulin coverage Full code. Heparin SQ. SNF today- signature- d/w daughter and CM Pt Condition on Discharge: Stable Discharge Disposition: Discharge to SNF Discharge Time: <= 30 minutes Discharge Instructions DIET: Follow Instructions for: Heart Healthy Diet, Diabetic Diet Speech Therapy-Diet Recommends: Regular Additional Diet Instructions: speech therapy with cognitive therapy daily Activities you can perform: Weight Bearing as Sybil Activities to Avoid: Prolonged Standing, Strenuous Activity Other Activity Instructions: PT supervidison daily cognitive therapy speech therapy daily Follow up Referrals: Neurology - 1 Week with Nakul Mendosa PhD MD New Orders: BASIC METABOLIC PROF - 01/18/17 PHENYTOIN (DILANTIN) - 01/18/17 New Medications: Amlodipine (Norvasc) 10 Mg Tab 10 MG PO DAILY HTN Days 30 TAB Docusate Sodium (Dok) 100 Mg Cap 100 MG PO Q12H BM #20 CAP Insulin Aspart Inj (Novolog Inj) 100 Unit/Ml Inj 1 UNITS SQ ACHS SLIDING SCALE DM Days 30 INJECTION Labetalol (Labetalol) 300 Mg Tab 300 MG PO BID HTN Days 30 TAB Phenytoin Extended (Dilantin) 100 Mg Cap 100 MG PO Q8HR SZ Days 30 CAP Potassium Chloride Microencaps (Potassium Chloride Microencaps) 20 Meq Tab 40 MEQ PO DAILY HYPO Days 7 TAB Quetiapine (Quetiapine) 25 Mg Tab 12.5 MG PO BID@09,12 PSY/DEM Days 30 TAB Tamsulosin (Flomax) 0.4 Mg Cap 0.4 MG PO DAILY URO Days 30 CAP Continued Medications: Donepezil (Donepezil) 10 Mg Tab 10 MG PO DAILY Dementia #30 Ref 0 TAB Lisinopril (Lisinopril) 20 Mg Tab 20 MG PO BID #30 Ref 0 TAB Discontinued Medications: Amlodipine (Amlodipine) 5 Mg Tab 5 MG PO DAILY Blood Pressure Management #30 Ref 0 TAB Glimepiride (Glimepiride) 2 Mg Tab 2 MG PO DAILY Take with breakfast or first main meal Blood Sugar Management #30 Ref 0 TAB Labetalol (Labetalol) 100 Mg Tab 100 MG PO BID Blood Pressure Management Ref 0 TAB Justine Aiken MD Jan 13, 2017 10:52
[2017-01-13 12:00] VITALS: BP 116/62; PULSE 110; RESP 21; TEMP 99.4; O2SAT 90
== END 2017-01-13 16:16 | DRG 71 ==
LOC: NEPE 17:42 → NEDA 19:37 → OBSVTOIN 19:37 → NEPGCP 22:38 → N05B 01-06 16:24
PROVIDERS: ADMIT Internal Medicine; ATTEND Internal Medicine
DX: G93.40 Encephalopathy, unspecified (principal); N17.9 Acute kidney failure, unspecified; G91.2 (Idiopathic) normal pressure hydrocephalus; F05 Delirium due to known physiological condition; F02.81 Dementia in other diseases classified elsewhere, unspecified severity, with behavioral disturbance; F41.9 Anxiety disorder, unspecified; I44.0 Atrioventricular block, first degree; I45.81 Long QT syndrome; R33.8 Other retention of urine; N21.0 Calculus in bladder; N40.1 Benign prostatic hyperplasia with lower urinary tract symptoms; I16.0 Hypertensive urgency; R56.9 Unspecified convulsions; E87.6 Hypokalemia; I12.9 Hypertensive chronic kidney disease with stage 1 through stage 4 chronic kidney disease, or unspecified chronic kidney disease; E11.22 Type 2 diabetes mellitus with diabetic chronic kidney disease; N18.9 Chronic kidney disease, unspecified; Z98.2 Presence of cerebrospinal fluid drainage device; Z79.84 Long term (current) use of oral hypoglycemic drugs
CPT/HCPCS: 70250; 70450; 71010; 72040; 74000; 76775; 80048; 80053; 80185; 80307; 81001; 82140; 82550; 82948; 83605; 84443; 84484; 85025; 85610; 85730; 87040; 93005; 95819; 96360; G8996-GN; G8997-GN; G8998-GN; J1630; J1644; J1815; J2060; J7030; Q2009